=== PATIENT | female | born 1945 | race Caucasian/White ===

== ENCOUNTER → 2023-06-09 08:05 | Outpatient (REF) | payer OTHER, SELFPAY | LOC: DHCBS HW 08:05 | PROVIDERS: ATTENDING PHYSICIAN Internal Medicine Cardiovascular Disease; FAMILY PHYSICIAN Physician Assistant Medical | DX: I35.0 Nonrheumatic aortic (valve) stenosis (principal) | CPT/HCPCS: 93306 ==

== ENCOUNTER → 2023-06-27 09:34 | Outpatient (REF) | payer OTHER, SELFPAY | LOC: HWWDC 09:34 | PROVIDERS: ATTENDING PHYSICIAN Physician Assistant Medical | DX: Z12.31 Encounter for screening mammogram for malignant neoplasm of breast (principal) | CPT/HCPCS: 77063; 77067 ==

== ENCOUNTER → 2023-11-02 17:12 | Outpatient (REF) | payer OTHER, SELFPAY | LOC: RAD 17:12 | PROVIDERS: ATTENDING PHYSICIAN Orthopaedic Surgery; FAMILY PHYSICIAN Physician Assistant Medical | DX: M79.661 Pain in right lower leg (principal) | CPT/HCPCS: 93971 ==

== ENCOUNTER 2024-08-24 18:24 | Inpatient (IN) | payer OTHER, SELFPAY ==
[2024-08-24] VITALS (41 sets, daily range): BP systolic 102–183; BP diastolic 65–115; BMI 33.7
--- NOTE | 2024-08-24 16:52 | ED.CVA ---
History of Present Illness
General
Chief Complaint: CVA/TIA Symptoms
Source: patient and family
Time Seen by Provider: 08/24/24 16:41
Onset of Stroke Symptoms
Onset of symptoms known: Yes
Date of onset of symptoms: 08/24/24
Time of onset of symptoms: 15:00
History of Present Illness
History of Present Illness:
79-year-old female brought to the emergency room for evaluation of aphasia. Patient began having difficulty speaking while on the phone with a family member. They were having a long conversation and at about 3 PM the patient began having
difficulty speaking normally. She began communicating gibberish. Prior to that the patient had been complaining of a significant headache stating that she was having difficulty getting out of her chair because her head hurt so much. Due to
aphasia patient is unable to provide any other history. There are family members here with her who state the patient is cognitively 'sharp'.
Phy Exam
Physical Exam
Physical Exam:
General: Awake, Alert, Oriented X3. No acute distress.
Vitals: unremarkable
Head: Atraumatic
Eyes: Pupils equal, EOMI
Throat: Airway intact, no exudates
Neck: Trachea midline
Lungs: Clear and equal b/l
Heart: Regular rate, no murmurs
Abd: Soft, Nontender, No pulsatile mass
Neuro: Expressive aphasia, following commands well, sensation appears intact bilaterally, cranial nerves intact, muscle strength equal bilaterally, cerebellar exam normal
Skin: Warm, dry, no rash
Extremities: pulses equal b/l, no edema
Scores
NIH Stroke Score
Level of Consciousness: 0 - Alert
LOC Questions: 0-Answers both correctly
LOC Commands: 0-Performs both correctly
Best Horizontal Gaze: 0-Normal
Visual [place]: 0=Normal, no visual loss
Facial Palsy: 1=Minor paralysis
Motor - Right Arm: 0=No drift 10 seconds
Motor - Left Arm: 0=No drift 10 seconds
Motor - Right Le-No drift 5 seconds
Motor - Left Le-No drift 5 seconds
Limb Ataxia: 0-Absent
Sensation: 0-Normal
Best Language: 2-Severe aphasia
Dysarthria: 0-Normal
Extinction and Inattention: 0-No abnormality
NIH Total Score:: 3
Course
Orders/Labs/Results
Orders:
Orders
08/24/24 16:50
Electrocardiogram (*1) Stat
Reason for Study: Other
Other Reason for Exam: neuro symptoms
Cardiac Monitoring- Treatment ONCE
EKG- Treatment ONCE
08/24/24 16:51
CT BRAIN PERF STROKE ALERT Urgent
Comment:
Reason For Exam: aphasia
CT HEAD STROKE ALERT W/o Cont Urgent
Comment:
Reason For Exam: aphasia
CT HEAD/NECK ANG STROKE ALERT Urgent
Comment:
Reason For Exam: aphasia
08/24/24 17:07
Complete Blood Count/With Diff Urgent
Comprehensive Metabolic Panel Urgent
Glycohemoglobin (HgbA1c) Urgent
08/24/24 17:09
Tenecteplase [Tnkase] 22 mg Syringe [Syringe Non-Pump] 0 ml IV NOW
Provider explained risk/benefits to patient &/or caregiver?: Yes
Blood pressure: 136/75
08/24/24 17:42
Admit/Transfer Patient As Directed
Co-Sign Provider:
Level of Care: Inpatient admission
Assign to:: ICU
Physician / Group: Htay
Diagnosis: Acute CVA
Reason for Hospitalization: TNK
Expected length of stay greater than two midnights?: Yes
ELOS- Estimated Length of Stay in days: 3
I certify the patient meets the requirements for IP care: Yes
PRN Pain Medication Management As Directed
May give lesser potent ordered pain med per pt: Yes
preference::
Protocol:: Medication orders for pain may be administered in a
manner that supports deferring to patient preference
when the pt is:
- Requesting an ordered lesser potent pain medication.
Least to most potent pain medications are defined
as: acetaminophen < NSAID < tramadol < opioids
(morphine, oxycodone, hydromorphone).
- Requesting a lesser dose of the same medication IF
ORDERED.
- Requesting a less intrusive route of administration
if both routes are prescribed by the provider (PO <
IV).
08/24/24 17:44
Code Status As Directed
Resuscitation Status: Full Code
08/24/24 17:52
Swallow Screening CVA/TIA ONLY As Directed
Comment: NPO until swallow screening completed
If patient FAILS swallow screening:: NPO and Speech consult and aspiration precautions
If patient PASSES swallow screening, diet:: 1999 CHO Diabetic
08/24/24 17:53
Acetaminophen [Tylenol] 650 mg PO NOW STA
08/24/24 18:26
Acetaminophen [Tylenol] 650 mg PO Q4HPRN PRN
Dextrose 50%-Water [Dextrose 50% Syringe] 12.5 grams IV [id number] PRN
Ezetimibe [Zetia] 10 mg PO DAILY
Glucagon [GlucaGen] 1 mg IM PRN PRN
HydrALAZINE [Apresoline] 5 mg IV Q6HPRN PRN
08/24/24 18:26
Electrocardiogram (*1) Routine
Reason for Study: TIA/Stroke
Case Management Consult Once
Case Management Consult: Discharge Planning
DIETARY IP CONSULT Routine
Reason for Consult: stroke/TIA
Animal Attendant Consult Routine
Consulting Provider: Pita Estes
Was physician already notified: Yes
NEUROLOGY CONSULT Urgent
Consulting Provider: Tray Rangel
Was physician already notified: Yes
Portfolio Specialist Urgent
MR Brain Without Contrast Routine
Comment: complete 24 hrs post tenecteplase administration
Reason For Exam: possible stroke, status post tenecteplase
Recent pill cam endoscopy?: No
Activity As Directed
Activity Level: Bathroom Privileges
Out of Bed- Chair
With Assistance
Comment: x 24hr post tenecteplase admin (and no PT/OT). then OOB as tolerated
Bedside Glucose Monitoring As Directed
Frequency: AC&HS
Additional Instructions:: Change to q6h if pt on TPN, tube feeding or not eating
Head of Bed-Restrictions As Directed
Elevation Level: 30 degress
Frequency: At all times
Comment: head of bed up 30 degrees for 24 hours
Hemetest Stools As Directed
Comment: hemoccult all stools if patient received tenecteplase
NIH Stroke Scale As Directed
Directions: Other
Comment: NIH stroke Scale to be completed prior to thrombolytic administration, then every 1 hour for 2
hours, then every shift and with change in condition and/or mental status.
Neurological Checks As Directed
Frequency: Per unit guidelines
Additional Instructions:: after start of thrombolytic therapy:
q15min x 2 hrs, q30min x 6 hrs, q1h x 16 hrs, q4h x 24 hrs, then every shift and
with any changes.
Notify MD As Directed
Notify physician if: - Any deterioration, change in neurological status, development of severe headache,
nausea and vomiting, or with any signs of bleeding. (see guidelines for suspected
intracerebral hemorrhage).
- If intracranial hemorrhage is suspected or confirmed by imaging, anticipate need for
osmotic diuretic to maintain euvolemia.
Notify MD As Directed
Notify physician if: Glucose less than 70 or greater than 180.
Anticipate corrective insulin orders.
Notify MD As Directed
Notify physician if: SBP not at goal within 30 minutes of prn HYDRALAZINE administration.
notify provider to initiate continuous infusion of nicardipine or clevidipine.
Notify MD As Directed
Notify physician if: unable to obtain MRI of head within 22-32 hours of tenecteplase administration
- contact Neurology for order for CT of head without contrast
Patient Education As Directed
Type: Stroke education packet
Comment: provide to patient and family
Pneumatic Compression Sleeves As Directed
Type: Knee high
Precautions As Directed
Type of Precautions: Bleeding
Comment: post Bleeding Precaution sign at bedside (if patient received tenecteplase)
Thrombolytic Precautions As Directed
Thrombolytic Precautions:: [place] bleeding precautions. Minimize invasive procedures and venipunctures,
avoid IM injections and over-handling patient, and check all puncture sites for
bleeding. Assess the patient and notify provider for signs and symptoms of
internal or serious bleeding, such as changes in vital signs or evidence of blood
in the urine or stool.
Additional instructions: Hemocult all stools.
Apply direct pressure or pressure dressing to any compressible puncture sites.
No ABG sampling or Rodriguez insertion after Tenecteplase administration for 24 hours,
unless directed by the Neurologist/Attending.
Vital Signs As Directed
Frequency: q15m
Call for:: BP greater than 180/105 mmHg or less than 100/60 mmHg
Additional Instructions:: after start of thrombolytic therapy:
q15min x 2 hrs, q30min x 6 hrs, q1h x 16 hrs, q4h x 24 hrs, then every shift and
with any changes.
Physiatry Consult Routine
Consulting Provider: Yariel Rush
Was physician already notified: Yes
Reason for consult: stroke/TIA
Speech Therapy Eval & Treat Routine
DX Deep Vein Thrombosis Video Routine
08/24/24 20:00
Latanoprost [Xalatan Ophthalmic Solution] See Dose Instructions BOTH EYES QPM
08/25/24 00:00
Insulin Aspart Corrective Mod [Novolog Flexpen-Moderate Resistance] See Protocol SC Q6
08/25/24 06:00
Basic Metabolic Panel IN AM
Cardiovascular Evaluation IN AM
Complete Blood Count/No Diff IN AM
Magnesium IN AM
PTT IN AM
Prothrombin Time IN AM
Levothyroxine [Synthroid] 125 mcg PO DAILY@0600
08/25/24 08:00
Furosemide [Lasix] 20 mg PO DAILY
08/25/24 17:44
Ot Eval And Treat Routine
Pt Eval And Treat Routine
Activity Level: Out of Bed-Early Mobility
Abnormal Lab Results
08/24/24
17:07
WBC 11.3 H 10^3/uL
(4.8-10.8)
RBC 5.54 H 10^6/uL
(4.20-5.40)
MCH 26.9 L pg
(27.0-31.0)
MCHC 31.7 L g/dL
(33.0-37.0)
MPV 10.7 H fL
(7.4-10.4)
Abs Immat Gran (auto) 0.1 H 10^3/uL
(0-0.05)
Absolute Neuts (auto) 7.0 H 10^3/uL
(1.4-6.5)
Absolute Monos (auto) 0.9 H 10^3/uL
(0.1-0.6)
Chloride 108 H mmol/L
(98-107)
BUN 19 H mg/dl
(7-17)
Glucose 127 H mg/dl
(70-99)
08/24/24 17:07
08/24/24 17:07
Vital Signs
Initial and Last Documented VS:
Initial Vital Signs
Pulse Resp Pulse Ox
100 15 96
08/24/24 16:45 08/24/24 16:45 08/24/24 16:45
Last Documented Vital Signs
Temp Pulse Resp BP Pulse Ox
97.6 F 123 49 169/84 96
08/24/24 19:42 08/24/24 20:00 08/24/24 20:00 08/24/24 20:00 08/24/24 20:00
MDM/Problems Addressed
Differential Diagnosis Includes:
Ischemic CVA, hemorrhagic CVA, seizure
MDM/Problems Addressed:
I was called by nursing to evaluate the patient shortly after she was brought back into her room due to aphasia. Time of onset is approximately 3 PM. Med list is brought with the patient that does not contain any anticoagulants. dmitri Arzate
pharmacist checked the patient's primary care doctor records and found she is not taking any anticoagulants.
CT report by Dr. Childers is no acute findings on the head CT. Patient has significant aphasia. Perhaps a mild right facial droop. NIH score is a 2-3. Ended up itself this may be below the threshold for thrombolytics however aphasia is certainly a
severe life altering effect of ischemia and therefore I believe the benefit of thrombolytics outweighs the risk. Consent obtained from Pt's niece (and medical POA) Miladys. I did explain that there is approx 5% chance of intra-cranial bleeding but
I feel benefit outweighs the risk.
At the time the patient was being transferred up to the intensive care unit her speech was clear. Aphasia resolved. No headache.
Chronic conditions affecting care: HTN and CAD
*Radiology
Radiology exam reviewed: radiology read reviewed
*Pulse Oximetry
Patient hypoxic: no
*EKG
Interpreted by ED Provider?: Yes
Heart Rate: 100
Rate: normal
Rhythm: sinus
[place]: normal axis
Interval: normal interval
QRS Pattern: normal QRS
Ischemia: no ischemia
*Flexo Operator Interpretation
Rate: normal
Interpretation: normal
Rhythm: sinus
*Critical Care Note
Total Time (30-74mins, 75-104mins- exclusive of procedures): 45 min
comment:
Critical care statement: A total of 45 minutes of critical care time was provided for this patient. This includes management of unstable vital signs, evaluation of the patient at bedside, reviewing the patient's pertinent medical records, discussion
with consultants, review of old EKGs and review of pertinent medical records. This time with separate from time utilized to perform the aforementioned documented procedures
ED Attending Note
-
Portions of this chart may have been created with voice recognition software.� Occasional wrong word or��sound alike� substitutions may have occurred due to the inherent limitations of voice recognition software.
Discharge Plan
Departure
Patient Disposition: Admit
Date of Disposition: 08/24/24
Time of Disposition: 17:50
Admit to: ICU
Presentation/result/management discussed w/ accepting MD/DO: Hospitalist
Condition: Serious
Discharge Problem:
Acute CVA (cerebrovascular accident)
Interventions
Interventions:
*Risk Screen - Suicide Last Done: 08/24/24 17:03
*General Assessment Last Done: 08/24/24 17:03
*Neglect/Abuse Screening Last Done: 08/24/24 17:03
*ED- Fall Risk Assessment Last Done: 08/24/24 17:03
*ED COVID-19 Vaccine History Last Done: 08/24/24 17:03
ED- Pulmonary Assessment Last Done: 08/24/24 17:04
ED- Neurological Assessment Last Done: 08/24/24 17:38
ED- Cardiac Assessment Last Done: 08/24/24 17:04
ED Swallowing Screen Last Done: 08/24/24 18:01
[2024-08-24 17:16] LABS: % Eosinophils 5.9 % (0-6); % Immature Granulocytes 0.4 % (0-0.5); % Monocytes 7.5 % (1.7-9.3); % Neutrophils 62.2 % (42.2-75.2); Absolute Basophils 0.1 10^3/uL (0-0.2); Absolute Eosinophils 0.7 10^3/uL (0-0.7); Absolute Immature Granulocytes 0.1 10^3/uL (0-0.05); Absolute Lymphocytes 2.6 10^3/uL (1.2-3.4); Absolute Monocytes 0.9 10^3/uL (0.1-0.6); Hemoglobin 14.9 g/dL (12.0-16.0); Mean Corp Hgb Conc. 31.7 g/dL (33.0-37.0); Mean Corpuscular Hgb 26.9 pg (27.0-31.0); Mean Corpuscular Volume 84.8 fL (81.0-99.0); Mean Platelet Volume 10.7 fL (7.4-10.4); Nucleated Red Blood Cells % 0 %; Platelet Count 253 10^3/uL (130-400); Red Blood Cell Count 5.54 10^6/uL (4.20-5.40); Red Cell Dist. Width 13.7 % (11.5-14.5); White Blood Cell Count 11.3 10^3/uL (4.8-10.8)
[2024-08-24] MEDS: TNKASE 4.4 MG IV (17:18)
[2024-08-24 17:27] LABS: ALT (SGPT) 32 U/L (0-35); AST (SGOT) 27 U/L (14-36); Albumin 4.6 g/dl (3.5-5.0); Alkaline Phosphatase 66 U/L (38-126); Blood Urea Nitrogen 19 mg/dl (7-17); Calcium 9.8 mg/dl (8.4-10.2); Carbon Dioxide 25 mmol/L (22-30); Chloride 108 mmol/L (98-107); Estimated Creatinine Clearance 69 ml/min; Glucose 127 mg/dl (70-99); Potassium 4.1 mmol/L (3.5-5.1); Sodium 141 mmol/L (135-145); Total Bilirubin 0.6 mg/dl (0.2-1.3); Total Protein 7.7 g/dl (6.3-8.2); eGFR > 60.00
--- NOTE | 2024-08-24 17:47 | HPS.HSE ---
Family Physician
-
Family Physician: Yariel Stephens
Chief Complaint
-
abrupt onset of abnormal speech
History of Present Illness
I could not get any information from the patient due to initial dysphasia which is improved whem I examined her
Information gathered by chart review and speaking with the ER staff.
HPI
79F diabetic lives alone independently , [facility] for for evaluation of abnormal speech
- she began having difficulty speaking while on the phone with a family member.
- while they having a long conversation and at about 3 PM the patient began having difficulty speaking normally.
- began communicating gibberish.
- Prior to that the patient had been complaining of a significant headache stating
- she was having difficulty getting out of her chair because her head hurt so much.
- There are family members here with her who state the patient is cognitively 'sharp'.
Medical History
Past Medical History
Past Medical History: Reports HTN and IDDM
Past Surgical History: Reports Other
Social History
Tobacco: Non-smoker
Alcohol: None
Living: Alone
Family History
Family History: Not pertinent
Allergies / Home Medications
Allergies reflects when Allergies were last updated in [employer].
Home Medications with original date entered in [employer]
Allergy/Medication List:
Allergies
Allergy/AdvReac Type Severity Reaction Status Date / Time
adhesive tape [Adhesive Tape] Allergy skin very Verified 05/21/21 13:10
red and
sore
epinephrine [Epinephrine] Allergy fast heart Verified 05/21/21 13:10
rate
during
dental
procedure
BOBBY Inhibitors AdvReac COUGH Verified 05/21/21 13:10
acetaminophen [From Percocet] AdvReac HYPERACTIVE Verified 05/21/21 13:10
metformin AdvReac DIARRHEA Verified 05/21/21 13:10
oxycodone [From Percocet] AdvReac HYPERACTIVE Verified 05/21/21 13:10
Oraamjv-SGS-SgQ Reductase AdvReac MUSCLE Verified 05/21/21 13:10
Inhibitor CRAMPS
Home Medications
amlodipine 10 mg tablet 10 mg PO DAILY 05/21/21
furosemide 20 mg tablet 20 mg PO DAILY 05/21/21
insulin degludec 100 unit/mL subcutaneous solution (Tresiba U-100 Insulin) 25 unit SC DAILY 05/21/21
levothyroxine 125 mcg tablet 125 mcg PO DAILY 05/21/21
multivitamin 1 ea PO DAILY 05/21/21
omega 5-qxf-lzy-fish oil 60 mg-90 mg-500 mg capsule 1 ea PO DAILY 05/21/21
aspirin 81 mg tablet,delayed release 81 mg PO DAILY 08/24/24
bimatoprost 0.01 % eye drops (Lumigan) 1 drp BOTH EYES QPM 08/24/24
docusate sodium 100 mg capsule 100 mg PO HS 08/24/24
dorzolamide 22.3 mg-timolol 6.8 mg/mL eye drops 1 drp BOTH EYES BID 08/24/24
ezetimibe 10 mg tablet 10 mg PO DAILY 08/24/24
magnesium 250 mg tablet 250 mg PO DAILYPRN PRN as directed 08/24/24
nateglinide 60 mg tablet 60 mg PO AC 08/24/24
psyllium novp-aaub-eakv gum-pectin 620 mg capsule (Fiber Fusion Daily) 620 cap PO DAILYPRN PRN constipation 08/24/24
Review of Systems
-
Constitutional: Reports No Symptoms
EENT: Reports No Symptoms
Respiratory: Reports No Symptoms
Cardiac: Reports No Symptoms
Abdomen/GI: Reports No Symptoms
: Reports No Symptoms
Musculoskeletal: Reports No Symptoms
Skin: Reports No Symptoms
Neurological: Reports See HPI and Headache
Endocrine: Reports No Symptoms
Hematologic/Lymphatic: Reports No Symptoms
Psych: Reports No Symptoms
Physical Exam
Vital Signs
Vital Signs
Temp Pulse Resp BP Pulse Ox
98.1 F 104 18 146/71 95
08/24/24 17:01 08/24/24 17:36 08/24/24 17:36 08/24/24 17:36 08/24/24 17:28
Physical Exam
General: Well Developed, Well Nourished and No Apparent Distress
HEENT: NormoCephalic, Moist mucous membranes and Atraumatic
Respiratory: Clear
Cardiac: S1/S2 and Regular Rhythm; No Murmur or Rub
GI: Soft, Non Tender, Non Distended and Normal Bowel Sounds; No Organomegaly
Rectal: Deferred by Provider
Musculoskeletal: No Clubbing, No Cyanosis and No Edema
Skin: No Rash
Neuro: Awake, Alert, AO x 3, No Motor Deficits, Nonfocal/grossly intact, No Sensory Deficits and Facial Droop (subtle Lt facial droop ); No Slurred Speech (resolved upon my exam )
Psych: Calm and Intact Judgment/Insight; No Confused
Laboratory Results
-
08/24/24 17:07
08/24/24 17:07
Laboratory Results
Total Bilirubin 0.6 mg/dl (0.2-1.3) 08/24/24 17:07
AST 27 U/L (14-36) 08/24/24 17:07
ALT 32 U/L (0-35) 08/24/24 17:07
Alkaline Phosphatase 66 U/L (38-126) 08/24/24 17:07
Data Reviewed
-
CT Scan: Report Reviewed by me
Lab Data: Labs Reviewed by me
Impression/Plan
-
Vital Signs
Temp Pulse Resp BP Pulse Ox
98.1 F 92 16 144/76 95
08/24/24 17:01 08/24/24 17:51 08/24/24 17:51 08/24/24 17:51 08/24/24 17:28
NIH Stroke Score upon arrival by ER
Level of Consciousness: 0 - Alert
LOC Questions: 0-Answers both correctly
LOC Commands: 0-Performs both correctly
Best Horizontal Gaze: 0-Normal
Visual [place]: 0=Normal, no visual loss
Facial Palsy: 1=Minor paralysis
Motor - Right Arm: 0=No drift 10 seconds
Motor - Left Arm: 0=No drift 10 seconds
Motor - Right Le-No drift 5 seconds
Motor - Left Le-No drift 5 seconds
Limb Ataxia: 0-Absent
Sensation: 0-Normal
Best Language: 2-Severe aphasia
Dysarthria: 0-Normal
Extinction and Inattention: 0-No abnormality
NIH Total Score:: 3
Abnormal Lab Results
08/24/24
17:07
WBC 11.3 H
RBC 5.54 H
MCH 26.9 L
MCHC 31.7 L
MPV 10.7 H
Abs Immat Gran (auto) 0.1 H
Absolute Neuts (auto) 7.0 H
Absolute Monos (auto) 0.9 H
Chloride 108 H
BUN 19 H
Glucose [address] HEAD STROKE ALERT W/o Con
No evidence of acute intracranial abnormality
CT HEAD/NECK ANG STROKE ALERT
- No evidence for intracranial large vessel occlusion.
- Aberrant medial course of the common carotid arteries, carotid bulbs, and proximal internal carotid arteries bilaterally.
- Less than 25% diameter reduction of the right carotid bulb and proximal right ICA.
- Moderate atherosclerotic disease involving the proximal left ICA with measured diameter reduction of 55%.
This could represent a hemodynamically significant stenosis. Further evaluation with cerebrovascular ultrasound could be attempted, but may be technically difficult because of the apparent medial course of the common carotid and proximal
internal carotid arteries.
- No significant narrowing of the vertebral or basilar arteries, with no evidence to suggest dissection.
Percent stenosis is calculated using NASCET criteria.
EKG
NORMAL SINUS RHYTHM
LOW VOLTAGE QRS
CANNOT RULE OUT ANTERIOR INFARCT , AGE UNDETERMINED
ABNORMAL ECG
WHEN COMPARED WITH ECG OF 22-MAY-2021 03:51,
NO SIGNIFICANT CHANGE WAS FOUND
ASSESSMENT & PLAN
Abrupt onset of dysphasic abn language with mild Rt facial droop
- NIH score 3 on arrival to ER - rapidly improved post TNK
- onset and arrival to ER is within TN window per ER attd
- HCT by Dr. Childers is no acute findings on the head CT.
- per ER attd : aphasia is certainly a severe life altering effect of ischemia and therefore I believe the benefit of thrombolytics outweighs the risk.
- Consent obtained from Pt's niece (and medical POA) Miladys acknowledged approx 5% chance of intra-cranial bleeding
- admit to ICU s/p TNK
- BP control: IV Hydralazine PRN if SBP > 180, DBP > 105 pr TNK protocol
- Hold EMERGENCY DISPATCHER Anti HTN Meds
- Brain MRI in AM
- check A1c, Lipids study
- ICU admission and follow post TNK protocol
- Neurologist and ICU consulted
Proximal left ICA with measured diameter reduction of 55%.
- hemodynamically significant stenosis ?
- await Neurologist evaluation
DVT Px: SCD
Full code
ICU
Total Critical Care Time__45___ minutes. I was immediately available to the patient and staff. I personally examined, reviewed labs, diagnostic images/reports, interpretations, treatment plans, discussed patient care with other providers and
family or caregivers (if patient is unable to make decisions), entered orders as appropriate and documented the medical record.
[2024-08-24] MEDS: TYLENOL 650 MG PO (18:02)
--- NOTE | 2024-08-24 19:25 | PTCARENOTE ---
Pt arrived to ICU rm#[id number] via stretcher from ED at 1815 w/ AGENT CONTRACT CLERK in attendance. Pt awake and responding appropriately to questions. Ox3. Pt c/o of urgent need to urinate. Placed on bedpan to void while still on ER stretcher- unsuccessful. Pt
transferred into ICU bed when she began to c/o 'numbness' and 'tingling' in Lt hand/fingers. Pt reports 'I have a trigger finger' and 'this sometimes happens'. Pt placed on ICU lunchroom monitor and NIHSS assessment completed at bedside with AGENT CONTRACT CLERK.
With assessment this RN found that pt had very slight Lt facial droop, Lt assistant floor covering printer <Rt assistant floor covering printer. When testing sensation to LEs, pt seemed to be unaware of touch sensation to Lt LE.- when touching both LEs pt would only identify Rt. When used pencil to touch
pts LE and asked if it felt the same to both LEs, pt stated 'Rt side is more'. Pt unable to read full sentences on NIHSS paperwork- neglects Lt sided most words. Kareem SCHUMACHER on unit and notified immediately of findings and made aware that per
AGENT CONTRACT CLERK these are significantly different findings from pts previous assessment in ER. Order for STAT CT Head ordered and pt immediately transferred w/ this RN for CT Scan. During transport, pt conversational and told this RN about her time in [place]
helping her sister care for her young children. During CT Scan- pt noted to be increasingly restless 'I have to pee so bad it hurts'. Upon return to ICU room, pt again assisted onto bedpan but unable to void. Rodriguez catheter placed by Juliano Rahman RN
and assisted by RN. Immediate return of >400ml pale yellow urine noted and continuing to drain. Despite Rodriguez placement, pt increasingly restless and noted to be more confused and inappropriate with conversation. Obvious signs of Lt sided neglect
noted as pt does not turn her head or acknowledge staff on Lt side of bed. Kareem SCHUMACHER notified of continued deterioration. Pt's nieces to bedside- updated on pt's present condition/plan of care. NIHSS completed w/ incoming shift RN.
--- NOTE | 2024-08-24 19:51 | PTCARENOTE ---
pt with worsening neuro symptoms, facial droop more prominent at rest, very restless attempting to sit up and get OOB, confused/mild slur. BDoughertyNP aware, in contact w Neuro, awaiting plan.
[2024-08-24] MEDS: ATIVAN 2 MG IV (20:45)
--- NOTE | 2024-08-24 20:45 | PTCARENOTE ---
CTA done, pt required 2mg IV ativan x 1 due to restlessness/constant movement on CT table. assessment unchanged.
[2024-08-24] MEDS: ZETIA PO (21:27)
[2024-08-24] MEDS: XALATAN OPHTHALMIC SOLUTION 1 DROP BOTH EYES (21:28)
[2024-08-24] MEDS: NSS (PRESERVATIVE FREE) 1 ML IV (21:29)
[2024-08-24] MEDS: NOVOLOG FLEXPEN-MODERATE RESISTANCE 1 UNITS SC (23:27)
[2024-08-24 23:37] LABS: Glucose - Point of Care 159 mg/dl (70-99)
[2024-08-25] VITALS (52 sets, daily range): BP systolic 106–182; BP diastolic 33–106; BMI 33.4
--- NOTE | 2024-08-25 | PTCARENOTE ---
neuro checks ongoing- see work list. pt sometimes able to say a few clear words and follow simple commands, slightly restless. no further changes.
--- NOTE | 2024-08-25 01:14 | W.PN.UPDATE ---
Update Note
Progress Note Update
Acute neuro status changes at 18:30. Stat Head CT ordered. (No significant findings). Neuro updated. �Neuro exam continues to decline. �Neuro recommended a repeat CTA of head to look for clot because of embolic etiology. �If clot found, patient
would be consider for possible thrombectomy candidate. However, no clot found and no other options for interventions.
[2024-08-25] MEDS: OFIRMEV 100 IV (01:47)
[2024-08-25 03:42] LABS: Hematocrit 44.3 % (37.0-47.0); Hemoglobin 14.4 g/dL (12.0-16.0); Mean Corp Hgb Conc. 32.5 g/dL (33.0-37.0); Mean Corpuscular Hgb 27.3 pg (27.0-31.0); Mean Corpuscular Volume 84.1 fL (81.0-99.0); Mean Platelet Volume 10.3 fL (7.4-10.4); Platelet Count 231 10^3/uL (130-400); Red Blood Cell Count 5.27 10^6/uL (4.20-5.40); Red Cell Dist. Width 13.3 % (11.5-14.5); White Blood Cell Count 14.3 10^3/uL (4.8-10.8)
[2024-08-25 03:57] LABS: INR 0.98; PT 13.3 Sec (11.4-14.6)
[2024-08-25 03:58] LABS: APTT 33.8 Sec (23.4-35.0)
[2024-08-25 04:07] LABS: Blood Urea Nitrogen 17 mg/dl (7-17); Calcium 9.6 mg/dl (8.4-10.2); Carbon Dioxide 24 mmol/L (22-30); Chloride 108 mmol/L (98-107); Estimated Creatinine Clearance 81 ml/min; Glucose 179 mg/dl (70-99); HDL Cholesterol 43 mg/dl; LDL Cholesterol, Calculated 144 mg/dl; Magnesium 1.8 mg/dl (1.6-2.3); Potassium 4.1 mmol/L (3.5-5.1); Sodium 141 mmol/L (135-145); Total Cholesterol 211 mg/dl (50-199); Triglyceride 123 mg/dl (10-149); Very Low Density Lipoprotein 24 mg/dl (0-30); eGFR > 60.00
[2024-08-25 06:37] LABS: Glucose - Point of Care 192 mg/dl (70-99)
[2024-08-25] MEDS: NOVOLOG FLEXPEN-MODERATE RESISTANCE 1 UNITS SC ×2 (06:37→12:34)
[2024-08-25] MEDS: SYNTHROID PO (06:37)
--- NOTE | 2024-08-25 07:22 | CON.INTV ---
Consultation
Consultation Request
Date/Time Consultation Requested: 08/24/2024
Date/Time Consultation Performed: 08/25/2024
Requesting Provider: Daryl Jefferson
Performing Provider: Pita Estes
Reason for Consultation: Stroke concern
Medical History
-
Chief Complaint: Dysphasia
History of Present Illness:
Patient is a 79-year-old female with known history of coronary artery disease and diabetes who was brought to the emergency room for abnormal speech. Apparently change in speech started while she was talking on the phone with the family member. In
the emergency room stroke alert was called and patient subsequently had a CT and CTA performed which was negative for any acute intracranial hemorrhage or large vessel occlusion. TNK was given for suspected underlying acute CVA. Patient was
subsequently admitted to the ICU and impregnator electrolytic capacitors consult was requested for further input.
Past Medical History
Past Medical History: Reports HTN and IDDM
Past Surgical History: Reports Other
Social History
Tobacco: Non-smoker
Alcohol: None
Living: Alone
Family History
Family History: Not pertinent
Allergies / Home Medications
Allergies / Home Medications
Allergies
Allergy/AdvReac Type Severity Reaction Status Date / Time
BOBBY Inhibitors Allergy COUGH Verified 08/24/24 17:57
adhesive tape [Adhesive Tape] Allergy skin very Verified 05/21/21 13:10
red and
sore
epinephrine [Epinephrine] AdvReac fast heart Verified 08/24/24 18:29
rate
during
dental
procedure
metformin AdvReac DIARRHEA Verified 08/24/24 18:29
oxycodone [From Percocet] AdvReac HYPERACTIVE Verified 08/24/24 18:29
Ffnfivx-CZR-QzN Reductase AdvReac MUSCLE Verified 08/24/24 18:29
Inhibitor CRAMPS
Home Medications
�Medication �Instructions �Recorded �Confirmed �Last Taken �Type
amlodipine 10 mg tablet 10 mg PO DAILY 05/21/21 08/24/24 05/20/21 09:00 History
furosemide 20 mg tablet 20 mg PO DAILY 05/21/21 08/24/24 05/20/21 09:00 History
insulin degludec 100 unit/mL 25 unit SC DAILY 05/21/21 08/24/24 05/20/21 07:00 History
subcutaneous solution (Tresiba
U-100 Insulin)
levothyroxine 125 mcg tablet 125 mcg PO DAILY 05/21/21 08/24/24 05/20/21 09:00 History
multivitamin 1 ea PO DAILY 05/21/21 08/24/24 05/20/21 09:00 History
omega 7-rcf-wtp-fish oil 60 mg-90 1 ea PO DAILY 05/21/21 08/24/24 Unknown History
mg-500 mg capsule
aspirin 81 mg tablet,delayed 81 mg PO DAILY 08/24/24 08/24/24 Unknown History
release
bimatoprost 0.01 % eye drops 1 drp BOTH EYES QPM 08/24/24 08/24/24 Unknown History
(Lumigan)
docusate sodium 100 mg capsule 100 mg PO HS 08/24/24 08/24/24 Unknown History
dorzolamide 22.3 mg-timolol 6.8 1 drp BOTH EYES BID 08/24/24 08/24/24 Unknown History
mg/mL eye drops
ezetimibe 10 mg tablet 10 mg PO DAILY 08/24/24 08/24/24 Unknown History
magnesium 250 mg tablet 250 mg PO DAILYPRN PRN as directed 08/24/24 08/24/24 Unknown History
nateglinide 60 mg tablet 60 mg PO AC 08/24/24 08/24/24 Unknown History
psyllium klfj-dnit-utca gum-pectin 620 cap PO DAILYPRN PRN 08/24/24 08/24/24 Unknown History
620 mg capsule (Fiber Fusion Daily) constipation
Review of Systems
-
Hematologic/Lymphatic: Other (All 14 systems reviewed and negative except as stated above in the history of present illness.)
Vitals / Labs / Diagnostic Testing
Vital Signs
Temp Pulse Resp BP Pulse Ox
98.4 F 98 20 150/79 94
08/25/24 03:30 08/25/24 06:30 08/25/24 06:30 08/25/24 06:21 08/25/24 06:30
Lab Data
08/25/24 03:21
08/25/24 03:21
Laboratory Results
08/25/24
03:21
PT 13.3
INR 0.98
APTT 33.8
Diagnostic Testing:
Physical Exam
-
HEENT: Normocephalic
Cardiovascular: S1/S2
Respiratory: Clear
GI: Soft and Non Distended
Neurology: Awake, Alert, Oriented and Other (Per patient, speech is back to baseline.)
Skin: Warm
General: Comfortable
Assessment
-
#1. Dysphagia with concern for acute stroke
- S/p TNK. Speech improved, appears to be at baseline
- Monitor closely in ICU
- Repeat CTA overnight without any acute abnormality
- Neurology service on case
- Permissive hypertension. Hold antiplatelets anticoagulant for first 24 hours and follow on further recommendations from neurology service
- Mild to moderate carotid artery stenosis noted on imaging
- Continue telemetry to monitor for any arrhythmia
#2. History of coronary artery disease, s/p PCI in 2021
- EKG unremarkable, no chest pain reported
- Hold antiplatelets for now considering TNK overnight
Other medical diagnoses:
-DM. SSI
-Hypothyroidism. On replacement
SCDs for DVT prophylaxis for now
Critical Care time 61 mins -- The patient is admitted for acute critical illness for the treatment of vital organ failure and/or prevention of further life-threatening conditions. Total care includes time spent in review of history, physical exam,
medications, hemodynamic/ventilator parameters, laboratory data, imaging and discussion with house staff, pharmacy, respiratory therapy, pensionholder information clerk, and nursing.
Data:
CXR 08/2024: Lungs are hypoinflated with resultant crowding of bronchovascular markings.
Mild elevation of the left hemidiaphragm.
CT/CTA Head 08/2024:
- Negative for acute abnormality
- No evidence for intracranial large vessel occlusion.
- Aberrant medial course of the common carotid arteries, carotid bulbs, and proximal internal carotid arteries bilaterally. Less than 25% diameter reduction of the right carotid bulb and proximal right ICA.
- Moderate atherosclerotic disease involving the proximal left ICA with measured diameter reduction of 55%. This could represent a hemodynamically significant stenosis. Further evaluation with cerebrovascular ultrasound could be attempted, but may
be technically difficult because of the apparent medial course of the common carotid and proximal internal carotid arteries.
- No significant narrowing of the vertebral or basilar arteries, with no evidence to suggest dissection
ECHO 06/2023: Normal left ventricular size, wall thickness and systolic function. No gross
regional wall motion abnormalities are seen. Estimated ejection fraction is
59%. Normal diastolic function.
Normal right ventricular size and function.
Mild mitral regurgitation.
Thickened trileaflet aortic valve with reduced leaflet excursion. Mild aortic
stenosis. Peak/mean gradients across the aortic valve are 18/9 mmHg. Aortic
valve area is 1.9 cm2. Trace aortic regurgitation.
Estimated pulmonary artery pressure of 30-35 mmHg. Assuming a right atrial
pressure of 3 mmHg.
Trivial pericardial effusion.
Cardiac Cath 05/2021: 1. Complex but successful stenting of the proximal to mid LAD with overlapping 3.0 x 28 mm and 3.0 x 18 mm Xience stents. The stented segment was postdilated with a 3.25 mm noncompliant balloon between 16 and 18 angus from the
proximal to midportion of the stent and at nominal pressures on the distal stent edge.
2. Preserved left ventricular function
[2024-08-25] MEDS: LASIX 20 MG PO (08:27)
[2024-08-25] MEDS: ZETIA 10 MG PO (08:27)
--- NOTE | 2024-08-25 09:31 | W.PN.HOSP.TC ---
Today's Communication/Plan
-
Assessment / Plan
Assessment / Plan
NAD
Scleral Anicteric
MMM
No JVD
CTABL
RRR, S1/S2
Soft, NT, ND, BS+
Warm, Dry
AAOx3, 5/5 motor strength in bilateral lower and upper extremities, good loltmw-bk-rqvg, jzgi-ak-jkap with good coordination
Slight facial droop worse on the left side than the right
Calm
Acute CVA, NIH improving, s/p TNK at around 3 PM in the ER
Neurology following
CT brain without evidence of acute intracranial abnormality, CTA head and neck no evidence of intracranial large vessel occlusion with noted mild ICA disease bilaterally worse in the left than the right need continued outpatient follow-up for this
MRI brain ordered
Can start aspirin once complete 24 hours post TNK
Continue Zetia, has known history of statin induced myalgias
PT OT
Per nursing bedside dysphagia screen completed past
Has Rodriguez catheter that can likely be removed after 24 hours of TNK
Hypothyroidism
Continue levothyroxine
Hypertension
Start antihypertensives as able to
Anticipated Discharge: 24 - 48 hours
Subjective/Interval History
-
Date of Service: August 25, 2024
Seen and examined. No new complaints. No acute overnight events.
Has not noted bleeding
States symptomatology is improving
Provide side nurse NIH 1 for slight facial droop
Objective Data
-
Labs:
Laboratory Results
08/25/24
03:21
WBC 14.3 H
Hgb 14.4
Hct 44.3
Plt Count 231
PT 13.3
INR 0.98
APTT 33.8
Sodium 141
Potassium 4.1
Chloride 108 H
Carbon Dioxide 24
BUN 17
Creatinine 0.6
Glucose 179 H
Calcium 9.6
Vital Signs:
Vital Signs
Temp Pulse Resp BP Pulse Ox
99.3 F 98 22 180/62 94
08/25/24 07:38 08/25/24 08:33 08/25/24 08:33 08/25/24 08:21 08/25/24 08:33
I&O
08/24/24 08/25/24 08/26/24
06:59 06:59 06:59
Output Total 1690 / 1690
Balance -1690 / -1690
--- NOTE | 2024-08-25 09:51 | CM ---
Patient seen at bedside with fay present in ICU. Patient stated that she lives alone in a 2 story home. Patient stated that she has no DME at home that she uses. Patient PCP is [facility] practice a [employer] but patient unable to state
name. Patient also uses the [facility] in [place] not the [facility]. Patient family indicated that they would review options for SNF placement if therapy/physicians recommended. PAC data provided to patient and family. Patient plan is to return home
and expressed resistance to placement. Family very supportive and will work with patient pending medical treatment plan/recommendations. CM will continue to follow for discharge planning needs.
Plan; home with VN vs SNF pending physician recommendations/therapy
--- NOTE | 2024-08-25 10:00 | PTCARENOTE ---
Rec'd pt at 0700. Bedside handoff completed with nightshift RN, NIHSS-1 for slight facial droop. JANE with no drift noted. Left hand grasp slightly weaker then right. Pt denies any numbness or tingling. Speech clear. Monitor SR. Lungs CTA. +BS, abd
soft/nt. Bedside swallow eval completed, pt passed and diet ordered. Rodriguez draining yellow urine. Family at bedside.
--- NOTE | 2024-08-25 11:02 | CON.NEURO ---
Addendum entered and electronically signed by Tray Rangel MD 08/25/24 17:27:
spoke to niece/alex Gimenez over the phone, MRI no stroke, the TNK worked,
suspecting embolic etiology, BALDO and additional afib screening recommended but optional
Original Note:
Neuro Assessment/Plan
Assessment
Head CT imgs and rept rev'd, mild diffuse atrophy and microvascular changes
CTA head/neck imgs and rept rev'd, agree no LVO, mild carotid plaque bilat without hemodynamically significant stenosis
repeat head CT yesterday evening no bleed
repeat CTA head no LVO
Acute stroke, responded well to TNK
MRI ~24 hrs after TNK
As she initially presented with left hemispheric cortical sign (aphasia) and now with a right hemispheric cortical sign (left sided neglect) suspect etiology embolic stroke of unknown source (ESUS) management would be to start ASA 81 ~24 hrs post
TNK after MRI, unless a source were found
spoke with patient re: BALDO, additional outpatient afib monitoring which she will think about
Consultation
Order
Date of Consultation: 08/25/24
Requesting Provider: Hortencia Beal PA-C
Reason for Consult: stroke
Subjective/Objective
Subjective Data
Date of Service: August 25, 2024
from h&p
79F diabetic lives alone independently , [facility] for for evaluation of abnormal speech
- she began having difficulty speaking while on the phone with a family member.
- while they having a long conversation and at about 3 PM the patient began having difficulty speaking normally.
- began communicating gibberish.
- Prior to that the patient had been complaining of a significant headache stating
- she was having difficulty getting out of her chair because her head hurt so much.
- There are family members here with her who state the patient is cognitively 'sharp'.
she was evaluated by telestroke and treated with TNK. the aphasia resolved. ~6:30 pm upon arrival to ICU, patient developed left sided neglect, sensory and visual. As she initially presented with left hemispheric cortical sign (aphasia) and now with
a right hemispheric cortical sign (left sided neglect) over the phone I advised repeat head CT and CTA head which again showed no LVO.
Objective Data
Vital Signs
Temp Pulse Resp BP Pulse Ox
37.4 C 89 14 128/61 98
08/25/24 07:38 08/25/24 10:21 08/25/24 10:21 08/25/24 10:21 08/25/24 10:21
Lab Results
08/25/24 03:21
08/25/24 03:21
PT 13.3 Sec (11.4-14.6) 08/25/24 03:21
INR 0.98 08/25/24 03:21
APTT 33.8 Sec (23.4-35.0) 08/25/24 03:21
Sodium 141 mmol/L (135-145) 08/25/24 03:21
Potassium 4.1 mmol/L (3.5-5.1) 08/25/24 03:21
BUN 17 mg/dl (7-17) 08/25/24 03:21
Glucose 179 mg/dl (70-99) H 08/25/24 03:21
Calcium 9.6 mg/dl (8.4-10.2) 08/25/24 03:21
LDL Cholesterol, Calc 144 mg/dl 08/25/24 03:21
Patient Allergies
BOBBY Inhibitors Allergy (Verified 08/24/24 17:57)
COUGH
adhesive tape [Adhesive Tape] Allergy (Verified 05/21/21 13:10)
skin very red and sore
epinephrine [Epinephrine] Adverse Reaction (Verified 08/24/24 18:29)
fast heart rate during dental procedure
metformin Adverse Reaction (Verified 08/24/24 18:29)
DIARRHEA
oxycodone [From Percocet] Adverse Reaction (Verified 08/24/24 18:29)
HYPERACTIVE
Giksnod-KLZ-QkY Reductase Inhibitor Adverse Reaction (Verified 08/24/24 18:29)
MUSCLE CRAMPS
Physical Exam
-
AAOx3, speech clear, language intact
VFF, EOMI, L NL flattening
full strength b/l UE/LE,
sensation intact to touch/pin
Medications
-
Active Medications
Generic Name Dose Route Start Last Admin
Trade Name Freq PRN Reason Stop Dose Admin
Acetaminophen 650 mg 08/24/24 18:26
Acetaminophen 325 Mg Tablet PO 09/21/24 18:25
Q4HPRN PRN
CRABTREE, mild pain, or temp >100.4F
Dextrose 12.5 grams 08/24/24 18:26
Dextrose 50% (0.5 Grams/Ml) 50 Ml Syringe IV 09/21/24 18:25
[id number] PRN
hypoglycemia
Protocol
Ezetimibe 10 mg 08/24/24 18:26 08/25/24 08:27
Ezetimibe (Zetia) 10 Mg Tablet PO 09/21/24 18:25 10 mg
DAILY MOJGAN Administration
Furosemide 20 mg 08/25/24 08:00 08/25/24 08:27
Furosemide 20 Mg Tablet PO 09/22/24 07:59 20 mg
DAILY OMJGAN Administration
Glucagon 1 mg 08/24/24 18:26
Glucagon 1 Mg Vial IM 09/21/24 18:25
PRN PRN
hypoglycemia
Protocol
Hydralazine HCl 5 mg 08/24/24 18:26
Hydralazine 20 Mg/Ml Vial IV 09/21/24 18:25
Q6HPRN PRN
BP > 180/105 mmHg
Insulin Aspart 0 units 08/25/24 00:00 08/25/24 06:37
Insulin Aspart Moderate Resistance 300 Units/3 Ml Pen.Injctr SC 09/22/24 00:00 1 units
Q6 MOJGAN Administration
Protocol
Latanoprost 0 drop 08/24/24 20:00 08/24/24 21:28
Latanoprost 0.005% (Ophthalmic Solution) 2.5 Ml Bottle BOTH EYES 09/21/24 19:59 1 drop
QPM MOJGAN Administration
Levothyroxine Sodium 125 mcg 08/25/24 06:00 08/25/24 06:37
Levothyroxine 125 Mcg Tablet PO 09/22/24 05:59 Not Given
DAILY@0600 MOJGAN
Sodium Chloride 0 flush 08/24/24 19:00
Sodium Chloride 0.9% (Flush) Syringe IV 09/21/24 18:59
PER PROTOCOL MOJGAN
Home Medications
�Medication �Instructions �Recorded
amlodipine 10 mg tablet 10 mg PO DAILY 05/21/21
furosemide 20 mg tablet 20 mg PO DAILY 05/21/21
insulin degludec 100 unit/mL 25 unit SC DAILY 05/21/21
subcutaneous solution (Tresiba
U-100 Insulin)
levothyroxine 125 mcg tablet 125 mcg PO DAILY 05/21/21
multivitamin 1 ea PO DAILY 05/21/21
omega 3-kba-iqo-fish oil 60 mg-90 1 ea PO DAILY 05/21/21
mg-500 mg capsule
aspirin 81 mg tablet,delayed 81 mg PO DAILY 08/24/24
release
bimatoprost 0.01 % eye drops 1 drp BOTH EYES QPM 08/24/24
(Lumigan)
docusate sodium 100 mg capsule 100 mg PO HS 08/24/24
dorzolamide 22.3 mg-timolol 6.8 1 drp BOTH EYES BID 08/24/24
mg/mL eye drops
ezetimibe 10 mg tablet 10 mg PO DAILY 08/24/24
magnesium 250 mg tablet 250 mg PO DAILYPRN PRN as directed 08/24/24
nateglinide 60 mg tablet 60 mg PO AC 08/24/24
psyllium qtin-etdu-bfmg gum-pectin 620 cap PO DAILYPRN PRN 08/24/24
620 mg capsule (Fiber Fusion Daily) constipation
--- NOTE | 2024-08-25 11:44 | PTOTSP ---
Speech Pathology
Clinical Swallow Evaluation
79F with admission for acute CVA s/p TNK presents with a functional oropharyngeal swallow. No overt s/s of aspiration observed. Cannot r/o silent aspiration at bedside. Rt sided facial droop and speech difficulties have resolved. Speech will
continue to follow, likely briefly, to r/o silent aspiration. Aspiration risk is increased 2/2 new CVA dx.
Recommend:
1. Regular textures (IDDSI 7), thin liquids
2. Meds as best tolerated
3. Aspiration Precautions
4. Speech will continue to follow, likely briefly re: ensure tolerance of current diet given new CVA; if difficulties arise, pt would likely benefit from VSE to r/o silent aspiration
[2024-08-25 12:35] LABS: Glucose - Point of Care 152 mg/dl (70-99)
[2024-08-25 15:00] LABS: Glycohemoglobin (HgbA1c) 6.9 % (4.0-5.6)
[2024-08-25 15:26] LABS: Glucose - Point of Care 99 mg/dl (70-99)
[2024-08-25] MEDS: NOVOLOG FLEXPEN-MODERATE RESISTANCE SC (15:40)
--- NOTE | 2024-08-25 16:07 | PTCARENOTE ---
MRI completed. Pt resting comfortably in bed with family at bedside. No changes in assessment.
[2024-08-25] MEDS: XALATAN OPHTHALMIC SOLUTION 1 DROP BOTH EYES (17:12)
[2024-08-25] MEDS: ASPIR LOW (ENTERIC COATED) 81 MG PO (17:26)
--- NOTE | 2024-08-25 20:00 | PTCARENOTE ---
patient assistant, pt aaox3, NIHSS 0. only deficit noted at this time is slightly weaker hand grasp on L side. denies pain. LA IV x 2 WNL. CHG bath, Rodriguez care done. POC discussed, call ronit simon pt.
[2024-08-25 21:29] LABS: Glucose - Point of Care 163 mg/dl (70-99)
[2024-08-26] VITALS (17 sets, daily range): BP systolic 105–142; BP diastolic 44–91; PULSE 76; O2SAT 95; BMI 33.0
--- NOTE | 2024-08-26 | PTCARENOTE ---
no changes in pt assessment.
--- NOTE | 2024-08-26 01:25 | PTCARENOTE ---
pt SBP low 100s while asleep, BDoughertyNP aware. will monitor.
--- NOTE | 2024-08-26 04:00 | PTCARENOTE ---
no changes in pt assessment.
[2024-08-26 04:11] LABS: Hematocrit 41.9 % (37.0-47.0); Hemoglobin 13.4 g/dL (12.0-16.0); Mean Corpuscular Hgb 27.2 pg (27.0-31.0); Mean Platelet Volume 10.6 fL (7.4-10.4); Platelet Count 231 10^3/uL (130-400); Red Blood Cell Count 4.93 10^6/uL (4.20-5.40); Red Cell Dist. Width 13.4 % (11.5-14.5)
[2024-08-26 04:34] LABS: Blood Urea Nitrogen 25 mg/dl (7-17); Calcium 9.5 mg/dl (8.4-10.2); Carbon Dioxide 26 mmol/L (22-30); Chloride 109 mmol/L (98-107); Estimated Creatinine Clearance 60 ml/min; Glucose 139 mg/dl (70-99); Potassium 3.9 mmol/L (3.5-5.1); Sodium 142 mmol/L (135-145); eGFR > 60.00
[2024-08-26] MEDS: SYNTHROID 125 MCG PO (05:39)
[2024-08-26] MEDS: LASIX 20 MG PO (07:57)
[2024-08-26] MEDS: ASPIR LOW (ENTERIC COATED) 81 MG PO (07:57)
[2024-08-26] MEDS: ZETIA 10 MG PO (07:57)
[2024-08-26 08:00] LABS: Glucose - Point of Care 148 mg/dl (70-99)
[2024-08-26] MEDS: NOVOLOG FLEXPEN-MODERATE RESISTANCE SC ×2 (08:28→16:39)
--- NOTE | 2024-08-26 10:43 | W.PN.HOSP.TC ---
Today's Communication/Plan
-
Assessment / Plan
Assessment / Plan
NAD
Scleral Anicteric
MMM
No JVD
CTABL
RRR, S1/S2
Soft, NT, ND, BS+
Warm, Dry
AAOx3, 5/5 motor strength in bilateral lower and upper extremities, good ghiqyq-ct-dqtg, nkoq-eo-vtgj with good coordination
Slight facial droop worse on the left side than the right
Calm
Acute CVA, NIH improving, s/p TNK at around 3 PM in the ER
Neurology following
CT brain without evidence of acute intracranial abnormality, CTA head and neck no evidence of intracranial large vessel occlusion with noted mild ICA disease bilaterally worse in the left than the right need continued outpatient follow-up for this
MRI brain without acute infarct
Aspirin started
Continue Zetia, has known history of statin induced myalgias
PT OT acute rehab recommended, consult physiatry
Per nursing bedside dysphagia screen completed past
Has Rodriguez catheter that can likely be removed after 24 hours of TNK
Per neurology recommend BALDO as concern for embolic, cardiology consult
Hypothyroidism
Continue levothyroxine
Hypertension
Start antihypertensives as able to
Anticipated Discharge: 24 - 48 hours
Subjective/Interval History
-
Date of Service: August 26, 2024
Seen and examined. No new complaint. No acute overnight events.
Objective Data
-
Labs:
Laboratory Results
08/26/24
03:48
WBC 12.0 H
Hgb 13.4
Hct 41.9
Plt Count 231
Sodium 142
Potassium 3.9
Chloride 109 H
Carbon Dioxide 26
BUN 25 H
Creatinine 0.8
Glucose 139 H
Calcium 9.5
Vital Signs:
Vital Signs
Temp Pulse Resp BP Pulse Ox
98 F 87 32 127/69 94
08/26/24 07:21 08/26/24 10:00 08/26/24 10:00 08/26/24 08:44 08/26/24 08:44
I&O
08/25/24 08/26/24 08/27/24
06:59 06:59 06:59
Intake Total 360 / 360
Output Total 1690 / 1720 805 / 835 340 / 340
Balance -1690 / -1720 -445 / -475 -340 / -340
--- NOTE | 2024-08-26 10:55 | CON.CAR ---
Consultation
Consultation Request
Date/Time Consultation Requested: August 26, 2024
Date/Time Consultation Performed: August 26, 2024
Requesting Provider: Dr. Lr
Performing Provider: Dr. Shah
Reason for Consultation: CVA, BALDO requested
Medical History
-
Chief Complaint: Dysarthria/aphasia
History of Present Illness:
Mary is an 79-year-old female with past medical history significant for CAD status post PCI LAD May 2021, hyperlipidemia, hypertension, DM 2, mild aortic stenosis who developed acute dysarthria and was admitted for CVA. CT and CTA were
performed and negative for any acute hemorrhage or large vessel occlusion. She received TNK with improvement in speech. She was evaluated by neurology and recommended evaluation for BALDO and consideration for further monitoring through cardiology.
She still has some word finding and slowness to speak she states. No chest pain shortness of breath palpitations. There is no history of atrial fibrillation. Patient's niece is medical POA and helps with history.
She was last seen by Dr. Overton June 2024. At that time Crestor was stopped due to side effects and she was started on Lipitor. She had side effects with Lipitor and Zetia was started and subsequently stopped due to side effects. She was going
to be reevaluated as an outpatient for consideration for PCSK9 inhibitor therapy.
Past medical history:
CAD status post PCI LAD May 2021
Hyperlipidemia
Statin intolerance with at least 2 statins
Hypertension
DM 2
Hypothyroidism
Obesity
Past surgical history:
Right total knee replacement September 2023
Cholecystectomy
Hysterectomy
D and C
Right meniscus repair
Right shoulder repair
Perianal fistula
Echo June 2023: Normal LV function, EF 59%, mild MR, mild with peak/mean gradients of 18/9 mmHg. Aortic valve area is 1.9 cm2. Pulmonary artery pressure 30 to 35 mmHg. Trivial pericardial effusion.
Social History
Tobacco: Former Smoker (Quit 40 years ago)
Alcohol: Occasional (Socially once a year)
Drug: None
Living: Alone
Family History
Family History: Early CAD (Her father had NC at 55 and 60 and of NC age 60. Mother had valve replacement in her 80s)
Allergies / Home Medications
Allergy/AdvReac Type Severity Reaction Status Date / Time
BOBBY Inhibitors Allergy COUGH Verified 08/24/24 17:57
adhesive tape [Adhesive Tape] Allergy skin very Verified 05/21/21 13:10
red and
sore
epinephrine [Epinephrine] AdvReac fast heart Verified 08/24/24 18:29
rate
during
dental
procedure
metformin AdvReac DIARRHEA Verified 08/24/24 18:29
oxycodone [From Percocet] AdvReac HYPERACTIVE Verified 08/24/24 18:29
Wioqvqp-MES-DyX Reductase AdvReac MUSCLE Verified 08/24/24 18:29
Inhibitor CRAMPS
�Medication �Instructions �Recorded �Confirmed �Type
amlodipine 10 mg tablet 10 mg PO DAILY 05/21/21 08/24/24 History
furosemide 20 mg tablet 20 mg PO DAILY 05/21/21 08/24/24 History
insulin degludec 100 unit/mL 25 unit SC DAILY 05/21/21 08/24/24 History
subcutaneous solution (Tresiba
U-100 Insulin)
levothyroxine 125 mcg tablet 125 mcg PO DAILY 05/21/21 08/24/24 History
multivitamin 1 ea PO DAILY 05/21/21 08/24/24 History
omega 7-tsn-jtm-fish oil 60 mg-90 1 ea PO DAILY 05/21/21 08/24/24 History
mg-500 mg capsule
aspirin 81 mg tablet,delayed 81 mg PO DAILY 08/24/24 08/24/24 History
release
bimatoprost 0.01 % eye drops 1 drp BOTH EYES QPM 08/24/24 08/24/24 History
(Lumigan)
docusate sodium 100 mg capsule 100 mg PO HS 08/24/24 08/24/24 History
dorzolamide 22.3 mg-timolol 6.8 1 drp BOTH EYES BID 08/24/24 08/24/24 History
mg/mL eye drops
ezetimibe 10 mg tablet 10 mg PO DAILY 08/24/24 08/24/24 History
magnesium 250 mg tablet 250 mg PO DAILYPRN PRN as directed 08/24/24 08/24/24 History
nateglinide 60 mg tablet 60 mg PO AC 08/24/24 08/24/24 History
psyllium dyez-lqld-mxxv gum-pectin 620 cap PO DAILYPRN PRN 08/24/24 08/24/24 History
620 mg capsule (Fiber Fusion Daily) constipation
Review of Systems
-
History Source: Patient
All other systems: Negative unless noted
Neurological: Other (Dysarthria/aphasia)
Physical Exam
Vital Signs
Temp Pulse Resp BP Pulse Ox
98 F 87 32 127/69 94
08/26/24 07:21 08/26/24 10:00 08/26/24 10:00 08/26/24 08:44 08/26/24 08:44
Physical examination:
General: No acute distress, AAOX3
Neck: Negative JVD
Heart: Regular, Negative S3 positive S1/S2, Negative S4, No murmur
Lungs: CTA b/l, negative wheezes/rales/rhonchi
Abd: Positive BS, NT/ND, neg rebound/rigidity/guarding
Ext: Negative cyanosis/clubbing/edema
Neuro: nonfocal
Lab Results
08/26/24 03:48
08/26/24 03:48
Impression / Plan
-
.
Primary juice standardizer Dr. Overton
Impression:
Dysphasia with concern acute CVA status post TNK
CAD status post PCI LAD May 2021
Hyperlipidemia
Statin intolerance with at least 2 statins
Hypertension
DM 2
Hypothyroidism
Obesity
Echo June 2023: Normal LV function, EF 59%, mild MR, mild with peak/mean gradients of 18/9 mmHg. Aortic valve area is 1.9 cm2. Pulmonary artery pressure 30 to 35 mmHg. Trivial pericardial effusion.
Plan:
Discussed BALDO to evaluate for cardiac source of embolus, LV thrombus. Procedure including risks and benefits were discussed and the patient is agreeable.
Continue telemetry monitoring. Discussed that if the patient develops atrial fibrillation that medication therapy would be transition to anticoagulation once okay with neurology.
Check 2-week monitor at discharge to evaluate for atrial fibrillation. If this is negative, the patient could be considered for implantable monitor. Monitoring was discussed in detail.
Reevaluate LV function at the time of BALDO.
LDL goal is at least less than 70. Patient adds intolerance to statins and Zetia. Patient will be considered for PCSK9 inhibitor as outpatient.
Niece, who is medical POA, at bedside and understands and agrees with current status and plan of care.
Discussed with nursing.
Data Reviewed
-
EKG: Tracing Personally Visualized and interpreted
CT Scan: Report Reviewed by me
MRI: Report Reviewed by me
Labs: Labs Reviewed by me
Old Records: Reviewed
[2024-08-26 11:37] LABS: Glucose - Point of Care 183 mg/dl (70-99)
[2024-08-26] MEDS: NOVOLOG FLEXPEN-MODERATE RESISTANCE 1 UNITS SC (12:11)
--- NOTE | 2024-08-26 13:23 | PTCARENOTE ---
Rec'd pt at 0700. Pt AAOx3, follows commands, JANE. NIHSS-0. Monitor SR. Lungs CTA. +BS. Jennifer jose'd at 1000. Pt voiding in bathroom. OOB with PT/OT to recliner chair. Pt with 2 instances of slight expressive aphasia/word finding which then resolved
within 10min. aware. Family at bedside. Pt transferred to tele room 336-2 via wheelchair, family accompanying pt.
--- NOTE | 2024-08-26 13:30 | W.PN.INTV ---
Today's Communication / Plan
Recommendations
- Patient stable for transferring out of ICU
- Chip Mixer service will sign off, please call as needed.
Assessment
-
Patient is a 79-year-old female with known history of coronary artery disease and diabetes who was brought to the emergency room for abnormal speech. Apparently change in speech started while she was talking on the phone with the family member. In
the emergency room stroke alert was called and patient subsequently had a CT and CTA performed which was negative for any acute intracranial hemorrhage or large vessel occlusion. TNK was given for suspected underlying acute CVA. Patient was
subsequently admitted to the ICU and facility sales and admin consult was requested for further input.
#1. Dysphagia with concern for acute stroke
- S/p TNK. Speech improved, appears to be at baseline. During my evaluation on 08/26, speech was normal. Reportedly she had self limiting dysarthria earlier in the morning
- MRI negative for acute stroke
- Continue telemetry monitoring for any A fib/A flutter. Might need BALDO vs prolonged rhythm monitoring
- Neurology service on case
- Permissive hypertension. Hold antiplatelets anticoagulant for first 24 hours and follow on further recommendations from neurology service
- Mild to moderate carotid artery stenosis noted on imaging
#2. History of coronary artery disease, s/p PCI in 2021
- EKG unremarkable, no chest pain reported
- ASA resumed. Zetia 10 mg daily.
Other medical diagnoses:
-DM. SSI
-Hypothyroidism. On replacement
Heparin for DVT prophylaxis.
Critical Care time 41 min-- The patient is admitted for acute critical illness for the treatment of vital organ failure and/or prevention of further life-threatening conditions. Total care includes time spent in review of history, physical exam,
medications, hemodynamic/ventilator parameters, laboratory data, imaging and discussion with house staff, pharmacy, respiratory therapy, construction trench digger, and nursing.
Data:
CXR 08/2024: Lungs are hypoinflated with resultant crowding of bronchovascular markings.
Mild elevation of the left hemidiaphragm.
CT/CTA Head 08/2024:
- Negative for acute abnormality
- No evidence for intracranial large vessel occlusion.
- Aberrant medial course of the common carotid arteries, carotid bulbs, and proximal internal carotid arteries bilaterally. Less than 25% diameter reduction of the right carotid bulb and proximal right ICA.
- Moderate atherosclerotic disease involving the proximal left ICA with measured diameter reduction of 55%. This could represent a hemodynamically significant stenosis. Further evaluation with cerebrovascular ultrasound could be attempted, but may
be technically difficult because of the apparent medial course of the common carotid and proximal internal carotid arteries.
- No significant narrowing of the vertebral or basilar arteries, with no evidence to suggest dissection
ECHO 06/2023: Normal left ventricular size, wall thickness and systolic function. No gross
regional wall motion abnormalities are seen. Estimated ejection fraction is
59%. Normal diastolic function.
Normal right ventricular size and function.
Mild mitral regurgitation.
Thickened trileaflet aortic valve with reduced leaflet excursion. Mild aortic
stenosis. Peak/mean gradients across the aortic valve are 18/9 mmHg. Aortic
valve area is 1.9 cm2. Trace aortic regurgitation.
Estimated pulmonary artery pressure of 30-35 mmHg. Assuming a right atrial
pressure of 3 mmHg.
Trivial pericardial effusion.
Cardiac Cath 05/2021: 1. Complex but successful stenting of the proximal to mid LAD with overlapping 3.0 x 28 mm and 3.0 x 18 mm Xience stents. The stented segment was postdilated with a 3.25 mm noncompliant balloon between 16 and 18 angus from the
proximal to midportion of the stent and at nominal pressures on the distal stent edge.
2. Preserved left ventricular function
Subjective Dataa
Subjective Data
Date of Service:
Date of Service: August 26, 2024
Subjective:
Patient comfortably sitting in the chair in no acute distress.
Review of Systems
Genitourinary: Other (All 14 systems reviewed and negative except as stated above in the history of present illness.)
Objective Data
Data Reviewed
Vital Signs / I&O / Oxygen:
Vital Signs
Temp Pulse Resp BP Pulse Ox
98.1 F 119 32 105/59 94
08/26/24 11:30 08/26/24 13:00 08/26/24 10:00 08/26/24 12:00 08/26/24 08:44
Intake and Output
08/25/24 08/26/24 08/27/24
06:59 06:59 06:59
Intake Total 360 / 360 240 / 240
Output Total 1690 / 1720 805 / 835 340 / 340
Balance -1690 / -1720 -445 / -475 -100 / -100
SaO2 94
Nasal Cannula flow liters per 2
minute
Physical Exam
General: Comfortable
HEENT: Normocephalic
Cardiovascular: S1-S2
Respiratory: Clear and Non-Labored Respirations
GI: Soft and Distended
Neurology: Awake, Alert and Oriented
Skin: Warm
Labs/Micro/Reports
Lab Data
08/26/24 03:48
08/26/24 03:48
[2024-08-26] MEDS: HEPARIN 5000 UNITS SC ×2 (16:13→23:46)
[2024-08-26 16:38] LABS: Glucose - Point of Care 103 mg/dl (70-99)
[2024-08-26] MEDS: XALATAN OPHTHALMIC SOLUTION BOTH EYES ×2 (17:45→17:57)
[2024-08-26 21:27] LABS: Glucose - Point of Care 134 mg/dl (70-99)
[2024-08-27] VITALS (8 sets, daily range): BP systolic 129–152; BP diastolic 46–84; PULSE 82–84
[2024-08-27] MEDS: SYNTHROID 125 MCG PO (05:56)
[2024-08-27 07:15] LABS: Glucose - Point of Care 147 mg/dl (70-99)
[2024-08-27] MEDS: ZETIA 10 MG PO (07:23)
[2024-08-27] MEDS: NOVOLOG FLEXPEN-MODERATE RESISTANCE SC ×2 (07:23→16:48)
[2024-08-27] MEDS: XALATAN OPHTHALMIC SOLUTION 1 DROP BOTH EYES (07:24)
[2024-08-27] MEDS: ASPIR LOW (ENTERIC COATED) 81 MG PO (07:24)
[2024-08-27] MEDS: LASIX 20 MG PO (07:24)
[2024-08-27] MEDS: HEPARIN 5000 UNITS SC ×3 (07:24→23:28)
--- NOTE | 2024-08-27 07:33 | W.PN.HOSP.TC ---
Today's Communication/Plan
-
BALDO
Physiatry consult
Discharge planning with rehabilitation caseworker
Assessment / Plan
Assessment / Plan
Impression
Patient is an 60-jrjx-rsy-year-female with known history of coronary artery disease and diabetes, presented to emergency room for abnormal speech. In the emergency room stroke alert was called and patient had a CT and CTA performed which was
negative for any acute intracranial hemorrhage or large vessel occlusion. S/p TNK for acute CVA. Remained in ICU for 24 hours. Initially presented with aphasia and then she had left-sided neglect, neurology suspected embolic stroke of unknown
origin as she has no past history of A-fib. Cardiology consultation for BALDO and mild carotid disease was done. Patient due to have BALDO today. Last echo done in June, estimated ejection fraction 59%, mild MR, normal left and right
ventricular function.
Assessment/plan
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
CT brain without any acute intracranial abnormality, CTA head and neck with no evidence of large vessel occlusion with noted mild ICA disease bilaterally worse in left than the right
S/p TNK
MRI brain without acute infarct
Neurology following, appreciate recommendations-continue aspirin and Zetia (history of myalgias with statin use)
Cardiology consult appreciated-BALDO today,2-week monitor at discharge to evaluate for atrial fibrillation, outpatient discussion regarding implantable monitor
LDL goal is less than 70 for the patient, outpatient follow-up
PT OT done-acute rehab recommended
Awaiting physiatry consult
Other stable medical conditions
CAD status post PCI LAD May 2021
Hyperlipidemia
Statin intolerance with at least 2 statins
Hypertension
DM 2
Hypothyroidism
Obesity
DVT prophylaxis
CODE STATUS
Anticipated Discharge: 24 - 48 hours
Subjective/Interval History
-
Date of Service: August 27, 2024
No active issues, speech issue resolved, strength 5/5 in all limbs, mobile, tolerating diet
Objective Data
-
Vital Signs:
Vital Signs
Temp Pulse Resp BP Pulse Ox
97.8 F 65 18 129/46 94
08/27/24 03:00 08/27/24 07:24 08/27/24 03:00 08/27/24 07:24 08/27/24 03:00
I&O
08/26/24 08/27/24 08/28/24
06:59 06:59 06:59
Intake Total 360 / 360 480 / 480
Output Total 805 / 835 340 / 340
Balance -445 / -475 140 / 140
Review of Systems
-
All other systems: Reviewed and negative
Physical Exam
-
General: Well Developed and No Apparent Distress
HEENT: Moist Mucous Membranes
Respiratory: Clear to Auscultation; Negative Wheezes, Rales or Rhonchi
Cardiac: Regular Rhythm and S1/S2
GI: Soft, Nontender, Nondistended and Normal Bowel Sounds
Musculoskeletal: No Clubbing, No Cyanosis and No Edema
Skin: Warm and Dry
Neuro: Awake, Oriented and No Motor Deficits
Psych: Calm
--- NOTE | 2024-08-27 07:58 | PTCARENOTE ---
08/26/24 1320 Patient received via wheelchair from ICU, accompanied by ICU nurse. Pt oriented to staff, environment and call light system. Pt ambulated with steady gait from wheelchair to bed with stand by assistance. NIH done at bedside with ICU
nurse and documented, without any changes from prior. All needs met.
[2024-08-27 11:30] LABS: Glucose - Point of Care 166 mg/dl (70-99)
[2024-08-27] MEDS: NON-FORMULARY ITEM 1 DROP BOTH EYES ×2 (12:33→20:21)
[2024-08-27] MEDS: NOVOLOG FLEXPEN-MODERATE RESISTANCE 1 UNITS SC (13:54)
--- NOTE | 2024-08-27 14:48 | CM ---
Spoke to PT and met with patient and family. recommendations from therapy are [facility] at . Patient and family agree. Referral in allscripts.
--- NOTE | 2024-08-27 15:00 | W.PN.UPDATE ---
Update Note
Progress Note Update
Seen and examined by me independently in collaboration with the medical delivery technician.
Lab data and imaging data reviewed.
Addendum as below :
Resolved symptoms of stroke-expressive aphasia. Suspected embolic stroke and ongoing evaluation. BALDO as per neuro recs.
Consult to PM&R for acute rehab evaluation.
DW Dr Yariel Stephens her nephew at bedside and updated clincals and tx plans.
[2024-08-27 16:49] LABS: Glucose - Point of Care 138 mg/dl (70-99)
[2024-08-27 20:35] LABS: Glucose - Point of Care 155 mg/dl (70-99)
[2024-08-28] VITALS (7 sets, daily range): BP systolic 106–150; BP diastolic 49–77; PULSE 68; BMI 32.6
[2024-08-28 05:38] LABS: Hematocrit 42.4 % (37.0-47.0); Hemoglobin 13.6 g/dL (12.0-16.0); Mean Corp Hgb Conc. 32.1 g/dL (33.0-37.0); Mean Corpuscular Hgb 27.1 pg (27.0-31.0); Mean Corpuscular Volume 84.5 fL (81.0-99.0); Mean Platelet Volume 10.8 fL (7.4-10.4); Platelet Count 232 10^3/uL (130-400); Red Blood Cell Count 5.02 10^6/uL (4.20-5.40); Red Cell Dist. Width 13.3 % (11.5-14.5); White Blood Cell Count 10.1 10^3/uL (4.8-10.8)
[2024-08-28 05:59] LABS: Blood Urea Nitrogen 29 mg/dl (7-17); Calcium 9.3 mg/dl (8.4-10.2); Carbon Dioxide 25 mmol/L (22-30); Chloride 109 mmol/L (98-107); Estimated Creatinine Clearance 60 ml/min; Glucose 170 mg/dl (70-99); Sodium 140 mmol/L (135-145); eGFR > 60.00
[2024-08-28] MEDS: SYNTHROID 125 MCG PO (06:27)
--- NOTE | 2024-08-28 07:19 | W.PN.HOSP.TC ---
Addendum entered and electronically signed by Dennis Bailon MD 08/28/24 14:29:
Seen and examined by me independently in collaboration with the infertility medical assistant.
Lab data and imaging data reviewed.
Addendum as below :
Resolved speech impairment/aphasia.
Finished BALDO which showed small PFO but felt unlikely to be the mechanism of his CVA and based on her age not a candidate for surgical repair. Cardiology to arrange 2-week cardiac monitoring as an outpatient on discharge.
Patient now agreeable for rehab. Physiatry consulted.
Appreciate neurology input-continue with aspirin for 6 months and reevaluate. PCP is K9 inhibitor treatment evaluation as an outpatient.
Medically stable for discharge.
Original Note:
Today's Communication/Plan
-
BALDO
Physiatry consult
Discharge planning
Assessment / Plan
Assessment / Plan
Impression
Patient is an 23-iaxs-vwl-year-female with known history of coronary artery disease and diabetes, presented to emergency room for abnormal speech. In the emergency room stroke alert was called and patient had a CT and CTA performed which was
negative for any acute intracranial hemorrhage or large vessel occlusion. S/p TNK for acute CVA. Remained in ICU for 24 hours. Initially presented with aphasia and then she had left-sided neglect, neurology suspected embolic stroke of unknown
origin as she has no past history of A-fib. Cardiology consultation for BALDO and mild carotid disease was done. Patient due to have BALDO today. Last echo done in June, estimated ejection fraction 59%, mild MR, normal left and right
ventricular function.
Assessment/plan
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
CT brain without any acute intracranial abnormality, CTA head and neck with no evidence of large vessel occlusion with noted mild ICA disease bilaterally worse in left than the right
S/p TNK on 08/24
MRI brain without acute infarct
Neurology following, recommendations appreciated-continue aspirin for 6 months and then reconsider, outpatient PCSK9 inhibitor, Holter monitoring for A-fib
BALDO done-CONCLUSIONS
Normal biventricular size and systolic function without regional wall motion
abnormality. LVEF 60-65%.
Small PFO.
Atherosclerotic plaque in the aortic arch.
No intracardiac thrombus.
No significant valvular abnormalities.
Cardiology recs appreciated-BALDO done, small PFO unlikely to be the mechanism of her CVA and based on her age not a candidate for closure, continue aspirin, continue Zetia and arrange for PCSK9 inhibitor on outpatient basis, cardiology signed off
LDL goal less than 70
PT OT done-acute rehab recommended
funeral service manager following
Awaiting physiatry consult
Other stable medical conditions
CAD status post PCI LAD May 2021
Hyperlipidemia
Statin intolerance with at least 2 statins
Hypertension
DM 2
Hypothyroidism
Obesity
DVT prophylaxis
CODE STATUS
Anticipated Discharge: 24 - 48 hours
Subjective/Interval History
-
Date of Service: August 28, 2024
No active issues, resolved symptoms of abnormal speech, moving around, tolerating diet
Objective Data
-
Labs:
Laboratory Results
08/28/24
05:11
WBC 10.1
Hgb 13.6
Hct 42.4
Plt Count 232
Sodium 140
Potassium 4.0
Chloride 109 H
Carbon Dioxide 25
BUN 29 H
Creatinine 0.8
Glucose 170 H
Calcium 9.3
Vital Signs:
Vital Signs
Temp Pulse Resp BP Pulse Ox
97.6 F 75 18 125/59 96
08/28/24 07:16 08/28/24 07:16 08/28/24 07:16 08/28/24 07:16 08/28/24 07:16
I&O
08/27/24 08/28/24 08/29/24
06:59 06:59 06:59
Intake Total 480 / 480 1500 / 1500
Output Total 340 / 340
Balance 140 / 140 1500 / 1500
Review of Systems
-
All other systems: Reviewed and negative
Physical Exam
-
General: Well Developed and No Apparent Distress
HEENT: Moist Mucous Membranes and Anicteric
Respiratory: Clear to Auscultation; Negative Wheezes, Rales or Rhonchi
Cardiac: Regular Rhythm and S1/S2
GI: Soft, Nontender, Nondistended and Normal Bowel Sounds
Musculoskeletal: No Clubbing, No Cyanosis and No Edema
Skin: Warm and Dry
Neuro: Awake, Oriented, No Motor Deficits and Other (Clear speech)
Psych: Calm
[2024-08-28 07:29] LABS: Glucose - Point of Care 177 mg/dl (70-99)
[2024-08-28] MEDS: ASPIR LOW (ENTERIC COATED) 81 MG PO (08:14)
[2024-08-28] MEDS: ZETIA 10 MG PO (08:14)
[2024-08-28] MEDS: LASIX 20 MG PO (08:14)
[2024-08-28] MEDS: HEPARIN 5000 UNITS SC ×3 (08:15→23:39)
[2024-08-28] MEDS: XALATAN OPHTHALMIC SOLUTION 1 DROP BOTH EYES (08:15)
[2024-08-28] MEDS: NON-FORMULARY ITEM 1 DROP BOTH EYES ×2 (08:16→20:25)
[2024-08-28] MEDS: NOVOLOG FLEXPEN-MODERATE RESISTANCE SC ×2 (08:19→12:40)
--- NOTE | 2024-08-28 10:49 | W.PN.CARDCBS ---
Addendum entered and electronically signed by Gunnar Anderson MD 08/28/24 12:44:
I saw and examined the patient.
The Steelworker's note was reviewed and I agree with the note.
Comment: Briefly, 79-year-old woman presenting with expressive aphasia concerning for CVA and cardiology was asked to assess for cardioembolic source of stroke
Telemetry reviewed, she has been maintaining sinus rhythm here
Underwent transesophageal echo earlier today which did identify small PFO however this is unlikely to be the mechanism of her CVA and based on her age she would not be a candidate for closure
Recommend long-term outpatient nutrition faculty member to assess for occult atrial fibrillation, we will place a 2-week monitor at the time of discharge
Agree with aspirin 81 mg daily.
Unfortunately intolerant to multiple statins in the past. Continue Zetia and we can arrange for PCSK9 inhibitor as an outpatient.
Stable cardiac status, we will sign off
Outpatient follow-up has been arranged
Original Note:
Today's Communication / Plan
-
BALDO today
2 week rhythm star to be placed prior to discharge
PT/OT/speech therapy
Tentative plan to go to [place] re[facility] in next 24 hours
Outpatient cardiology follow up arranged
Impression / Plan
-
.
Primary chronic specialist Dr. Overton
Impression:
Presented 08/24/2024 with acute onset of speech difficulty and severe headache
Dysphasia with concern acute CVA
status post TNK
MRI was negative for stroke
PFO by BALDO 08/28/24
CAD
status post PCI LAD May 2021
Hyperlipidemia
Statin intolerance with at least 2 statins
Hypertension
DM 2
Hypothyroidism
Obesity
Echo June 2023: Normal LV function, EF 59%, mild MR, mild with peak/mean gradients of 18/9 mmHg. Aortic valve area is 1.9 cm2. Pulmonary artery pressure 30 to 35 mmHg. Trivial pericardial effusion.
BALDO 08/28/2024:Preliminary report no cardiac source of thrombus, small PFO with Right to left shunting
CTA head 08/24/2024: No evidence of intracranial embolism, occlusion or dissection
Plan:
Presented 08/24/2024 with acute onset of speech difficulty and severe headache with ongoing dysphasia, left-sided neglect with concern acute CVA. Patient was provided TNK.
- MRI negative for acute stroke, embolism occlusion or dissection of intracranial vessels
- Continue aspirin, Zetia (patient has longstanding history of statin intolerance)
- Preliminary BALDO 08/28/2024 Preliminary report no cardiac source of thrombus, small PFO with Right to left shunting.
Review of telemetry no arrhythmias noted. Continue telemetry monitoring. If she should develop atrial fibrillation then would need to transition from antiplatelet therapy to anticoagulation. Will leave to neurology if pt should be on DAPT w/ Plavix
and ASA for 21 days.
Patient to wear 2-week monitor rhythm star at discharge to evaluate for atrial fibrillation. If this is negative, considered for implantable monitor. Monitoring was discussed in detail.
LDL goal is at least less than 70. Patient adds intolerance to statins and Zetia. Patient will be considered for PCSK9 inhibitor as outpatient.
.
Progress Note - Sand Mixer Machine
Subjective
Date of Service: August 28, 2024
Patient seen and examined. Patient overall feeling well. Feels speech has for the most part return to baseline but still occasionally has difficulty finding words.
Objective
Labs:
08/28/24 05:11
08/28/24 05:11
Labs
Hgb 13.6 g/dL (12.0-16.0) 08/28/24 05:11
Hct 42.4 % (37.0-47.0) 08/28/24 05:11
Plt Count 232 10^3/uL (130-400) 08/28/24 05:11
PT 13.3 Sec (11.4-14.6) 08/25/24 03:21
INR 0.98 08/25/24 03:21
APTT 33.8 Sec (23.4-35.0) 08/25/24 03:21
Sodium 140 mmol/L (135-145) 08/28/24 05:11
Potassium 4.0 mmol/L (3.5-5.1) 08/28/24 05:11
BUN 29 mg/dl (7-17) H 08/28/24 05:11
Creatinine 0.8 mg/dL (0.6-1.0) 08/28/24 05:11
Glucose 170 mg/dl (70-99) H 08/28/24 05:11
Vital Signs and I&O:
Vital Signs
Temp Pulse Resp BP Pulse Ox
97.6 F 75 18 125/59 96
08/28/24 07:16 08/28/24 07:16 08/28/24 07:16 08/28/24 07:16 08/28/24 07:16
Vital Signs
Temp Pulse Resp BP Pulse Ox
97.6 F 75 18 125/59 96
08/28/24 07:16 08/28/24 07:16 08/28/24 07:16 08/28/24 07:16 08/28/24 07:16
Intake & Output
08/26/24 08/27/24 08/28/24 08/29/24
06:59 06:59 06:59 06:59
Intake Total 360 / 360 480 / 480 1500 / 1500
Output Total 805 / 835 340 / 340
Balance -445 / -475 140 / 140 1500 / 1500
Physical Exam
Physical Exam
GEN: No distress, awake, Ox3, lying in bed
HEENT: supple, anicteric, mmm
LUNGS: CTA, no wheezes/rales
CV: Reg, S1/S2, no murmur, rub or gallop
ABD: soft, BS+, NT/ND
EXT: No edema, clubbing or cyanosis
NEURO: Gross non-focal
SKIN: No rash, warm, dry, pink
--- NOTE | 2024-08-28 11:13 | W.PN.NEURO.1 ---
Today's Communication / Plan
-
additional outpatient afib monitoring by Holter monitor 72 hours, please
low yield to Echo
started ASA 81 mg and continue for 6 months then reconsider
add as outpatient PCSK9 inhibitor due to LDL > 70 on Ezetimibe
Neuro Assessment/Plan
Assessment
Head CT imgs and rept rev'd, mild diffuse atrophy and microvascular changes
CTA head/neck no LVO, mild carotid plaque bilaterally without hemodynamically significant stenosis
repeat head CT yesterday evening no bleed
repeat CTA head no LVO
MRI without acute or prior ischemic lesions
Acute onset aphasia and headache, patient received TNK
DDX with normal MRI of brain includes migraine with aura, TIA, exposed neurocognitive decline
Plan
additional outpatient afib monitoring by Holter monitor 72 hours, please
low yield to Echo
started ASA 81 mg and continue for 6 months then reconsider
add as outpatient PCSK9 inhibitor due to LDL > 70 on Ezetimibe
outpatient headache evaluation
outpatient cognitive evaluation
goal of normotension
goal of normoglycemia
medical educational materials to be added
Will follow as outpatient
Subjective/Objective
Subjective Data
Date of Service: August 28, 2024
Objective Data
Vital Signs
Temp Pulse Resp BP Pulse Ox
36.4 C 75 18 125/59 96
08/28/24 07:16 08/28/24 07:16 08/28/24 07:16 08/28/24 07:16 08/28/24 07:16
Lab Results
08/28/24 05:11
08/28/24 05:11
PT 13.3 Sec (11.4-14.6) 08/25/24 03:21
INR 0.98 08/25/24 03:21
APTT 33.8 Sec (23.4-35.0) 08/25/24 03:21
Sodium 140 mmol/L (135-145) 08/28/24 05:11
Potassium 4.0 mmol/L (3.5-5.1) 08/28/24 05:11
BUN 29 mg/dl (7-17) H 08/28/24 05:11
Glucose 170 mg/dl (70-99) H 08/28/24 05:11
Calcium 9.3 mg/dl (8.4-10.2) 08/28/24 05:11
LDL Cholesterol, Calc 144 mg/dl 08/25/24 03:21
Patient Allergies
BOBBY Inhibitors Allergy (Verified 08/24/24 17:57)
COUGH
adhesive tape [Adhesive Tape] Allergy (Verified 05/21/21 13:10)
skin very red and sore
epinephrine [Epinephrine] Adverse Reaction (Verified 08/24/24 18:29)
fast heart rate during dental procedure
metformin Adverse Reaction (Verified 08/24/24 18:29)
DIARRHEA
oxycodone [From Percocet] Adverse Reaction (Verified 08/24/24 18:29)
HYPERACTIVE
Woznfmy-PXU-EuQ Reductase Inhibitor Adverse Reaction (Verified 08/24/24 18:29)
MUSCLE CRAMPS
Data Reviewed
-
CT Head: Report Reviewed
MRI Head: Report Reviewed
Labs: Report Reviewed
Lipid Profile: Report Reviewed
Reviewed with: Physician
Old Records: Summarized
--- NOTE | 2024-08-28 11:49 | CM ---
CM following for discharge planning.
[facility] anticipated pending insurance approval and medical stability.
Pt is currently off the floor for testing.
Plan: CM to coordinate transfer to [facility].
[2024-08-28 12:04] LABS: Glucose - Point of Care 125 mg/dl (70-99)
[2024-08-28 16:35] LABS: Glucose - Point of Care 171 mg/dl (70-99)
[2024-08-28] MEDS: NOVOLOG FLEXPEN-MODERATE RESISTANCE 1 UNITS SC (17:02)
[2024-08-28] MEDS: TYLENOL 650 MG PO (20:35)
[2024-08-28 21:37] LABS: Glucose - Point of Care 122 mg/dl (70-99)
[2024-08-29 03:00] VITALS: BP 131/56
[2024-08-29 04:55] VITALS: BMI 32.5
[2024-08-29] MEDS: SYNTHROID 125 MCG PO (05:33)
[2024-08-29 06:23] LABS: Hematocrit 42.7 % (37.0-47.0); Hemoglobin 13.6 g/dL (12.0-16.0); Mean Corp Hgb Conc. 31.9 g/dL (33.0-37.0); Mean Corpuscular Hgb 26.8 pg (27.0-31.0); Mean Corpuscular Volume 84.2 fL (81.0-99.0); Mean Platelet Volume 11.2 fL (7.4-10.4); Platelet Count 232 10^3/uL (130-400); Red Blood Cell Count 5.07 10^6/uL (4.20-5.40); Red Cell Dist. Width 13.2 % (11.5-14.5); White Blood Cell Count 9.7 10^3/uL (4.8-10.8)
[2024-08-29 06:40] LABS: Blood Urea Nitrogen 22 mg/dl (7-17); Calcium 9.4 mg/dl (8.4-10.2); Carbon Dioxide 24 mmol/L (22-30); Chloride 109 mmol/L (98-107); Estimated Creatinine Clearance 59 ml/min; Glucose 156 mg/dl (70-99); Magnesium 1.9 mg/dl (1.6-2.3); Potassium 3.9 mmol/L (3.5-5.1); Sodium 141 mmol/L (135-145); eGFR > 60.00
[2024-08-29 07:32] VITALS: BP 117/71
[2024-08-29 07:47] LABS: Glucose - Point of Care 198 mg/dl (70-99)
[2024-08-29] MEDS: NOVOLOG FLEXPEN-MODERATE RESISTANCE 1 UNITS SC ×2 (08:14→16:58)
[2024-08-29] MEDS: ZETIA 10 MG PO (08:17)
[2024-08-29] MEDS: HEPARIN 5000 UNITS SC ×2 (08:17→16:58)
[2024-08-29] MEDS: ASPIR LOW (ENTERIC COATED) 81 MG PO (08:17)
[2024-08-29] MEDS: LASIX 20 MG PO (08:17)
[2024-08-29] MEDS: NON-FORMULARY ITEM 2 DROP BOTH EYES (08:18)
[2024-08-29] MEDS: XALATAN OPHTHALMIC SOLUTION BOTH EYES (08:19)
[2024-08-29] MEDS: TYLENOL 650 MG PO (10:36)
[2024-08-29 10:57] VITALS: BP 136/65
[2024-08-29 12:01] VITALS: BP 120/74; BP 130/57; PULSE 63; O2SAT 97
[2024-08-29 12:01] LABS: Glucose - Point of Care 126 mg/dl (70-99)
[2024-08-29] MEDS: NOVOLOG FLEXPEN-MODERATE RESISTANCE SC (12:13)
--- NOTE | 2024-08-29 12:21 | W.PN.HOSP.TC ---
Addendum entered and electronically signed by Dennis Bailon MD 08/29/24 17:00:
Seen and examined by me independently in collaboration with the emergency medical tech.
Lab data and imaging data reviewed.
Addendum as below :
Resolved speech impairment. No new neurological symptoms. Seen by PT and OT today and cleared for home with outpatient therapies.
Medically stable for discharge. Appreciate neurology recommendations. Cardiology will be arranging outpatient Holter monitor for her.
Total time of discharge 32 minutes
Original Note:
Today's Communication/Plan
-
Consult caser up-arrange home physical therapy
Update family
Relieve constipation
Outpatient P PCSK9 inhibitor
Reach out to cardiology regarding the monitor
Assessment / Plan
Assessment / Plan
Impression
Patient is an 27-szmd-qbk-year-female with known history of coronary artery disease and diabetes, presented to emergency room for abnormal speech. In the emergency room stroke alert was called and patient had a CT and CTA performed which was
negative for any acute intracranial hemorrhage or large vessel occlusion. S/p TNK for acute CVA. Remained in ICU for 24 hours. Initially presented with aphasia and then she had left-sided neglect, neurology suspected embolic stroke of unknown
origin as she has no past history of A-fib. Cardiology consultation for BALDO and mild carotid disease was done. Patient due to have BALDO today. Last echo done in June, estimated ejection fraction 59%, mild MR, normal left and right
ventricular function.
Assessment/plan
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
CT brain without any acute intracranial abnormality, CTA head and neck with no evidence of large vessel occlusion with noted mild ICA disease bilaterally worse in left than the right
S/p TNK on 08/24
MRI brain without acute infarct
Neurology following, recommendations appreciated-continue aspirin for 6 months and then reconsider, outpatient PCSK9 inhibitor, Holter monitoring for A-fib
BALDO done-CONCLUSIONS
Normal biventricular size and systolic function without regional wall motion
abnormality. LVEF 60-65%.
Small PFO.
Atherosclerotic plaque in the aortic arch.
No intracardiac thrombus.
No significant valvular abnormalities.
Cardiology recs appreciated-BALDO done, small PFO unlikely to be the mechanism of her CVA and based on her age not a candidate for closure, continue aspirin, continue Zetia and arrange for PCSK9 inhibitor on outpatient basis, cardiology signed off
LDL goal less than 70
PT OT done-recommend home physical therapy
compliance program manager following
Awaiting physiatry consult
Other stable medical conditions
CAD status post PCI LAD May 2021
Hyperlipidemia
Statin intolerance with at least 2 statins
Hypertension
DM 2
Hypothyroidism
Obesity
Called patient's niece, Miladys Sawant and updated her about the discharge plan with home physical therapy. And also updated her about the treatment plan and outpatient follow-ups. All questions and concerns were answered
DVT prophylaxis
CODE STATUS
Anticipated Discharge: Within 24 hours
Subjective/Interval History
-
Date of Service: August 29, 2024
Denies any issues, speech normal, walking around without any issues
Constipation
Objective Data
-
Labs:
Laboratory Results
08/29/24
05:21
WBC 9.7
Hgb 13.6
Hct 42.7
Plt Count 232
Sodium 141
Potassium 3.9
Chloride 109 H
Carbon Dioxide 24
BUN 22 H
Creatinine 0.8
Glucose 156 H
Calcium 9.4
Vital Signs:
Vital Signs
Temp Pulse Resp BP Pulse Ox
97.8 F 66 17 136/65 96
08/29/24 10:57 08/29/24 10:57 08/29/24 10:57 08/29/24 10:57 08/29/24 10:57
I&O
08/28/24 08/29/24 08/30/24
06:59 06:59 06:59
Intake Total 1500 / 1500 1020 / 1020
Balance 1500 / 1500 1020 / 1020
Review of Systems
-
All other systems: Reviewed and negative
Physical Exam
-
General: Well Developed, No Apparent Distress and Other (Walking without difficulty, normal speech)
HEENT: Moist Mucous Membranes
Respiratory: Clear to Auscultation; Negative Wheezes, Rales or Rhonchi
Cardiac: Regular Rhythm and S1/S2
GI: Soft, Nontender, Nondistended and Normal Bowel Sounds
Musculoskeletal: No Clubbing, No Cyanosis and No Edema
Skin: Warm and Dry
Neuro: Awake, Oriented and Nonfocal/Grossly Intact
Psych: Calm
--- NOTE | 2024-08-29 12:41 | PTCARENOTE ---
Addendum entered by Shelly Alcantara RN 08/29/24 12:43:
Pt informed this RN she had a BM, refused medication.
Original Note:
Pt c/o constipation, made aware, new order provided, see MAR.
[2024-08-29 15:55] VITALS: BP 128/68
--- NOTE | 2024-08-29 16:05 | DOWNTIME ---
There was a [employer] Client Steam Crane Operator Downtime on 08/29/2024 from 1230 to 08/29/2024 at 1550. Downtime documentation of patient's care, including medication administrations, has been reconciled in the electronic record per guidelines. Refer to the
patient's paper chart under the miscellaneous tab to see printed paper medication records and downtime forms.
--- NOTE | 2024-08-29 16:14 | VNURNOTE ---
Home Health Liaison spoke with patient to discuss [facility] nurse/therapy, visits, schedule and homebound status. Patient is agreeable and understands that visits at home will be 2-3 x per week to assess and teach medical management. Patient is aware
that [facility] will contact them for start of care in 1-2 days after discharge from .
[facility] referral completed in [facility].
[2024-08-29 16:28] LABS: Glucose - Point of Care 176 mg/dl (70-99)
--- NOTE | 2024-08-29 16:38 | CON.MD ---
Consultation - Medical
-
Date of Consult:�08/29/2024
Referring Provider:�Dr. Dennis Bailon
Chief Complaint:�Stroke
�
History of Present Illness:�79-year-old right-handed female with PMH (as below) presented to [facility] on 08/24/24 with abnormal speech and recent headache. Stroke alert initiated. Initial CT of the head and neck without acute
intracranial abnormality, moderate atherosclerotic disease proximal left ICA. She received TNK with rapid improvement.
�
Past Medical History:�HTN, insulin-dependent diabetes mellitus, CAD, hypothyroidism, obesity
Procedure History:�Right total knee replacement, PCI 2021, cholecystectomy, hysterectomy, dilatation and curettage, right shoulder repair, perianal fistula surgery
Family History:�Early CAD (Her father had NM at 55 and 60 and of NM age 60. Mother had valve replacement in her 80s)
�
Social History:�
Functional Level Premorbidly:�Independent with all activities�
Functional Level Currently:�Independent level for self-care, modified independent with transfers and independent with ambulating 200 feet and 12 steps without device
�
Tobacco:�Former, quit 40 years ago
Alcohol:�Rare socially
Drug use:�Denies�
�
Lives with:�Alone
24-hour assistance available:�Possibly
Number of floors:�2
# steps to enter:�1
Potential First floor set up:�Yes, currently stays on first floor
Driving:�Yes
Occupation:�Retired
�
�
Allergies:�
Allergy/AdvReac Type Severity Reaction Status Date / Time
BOBBY Inhibitors Allergy COUGH Verified 08/24/24 17:57
adhesive tape (Adhesive Tape) Allergy skin very Verified 05/21/21 13:10
red and
sore
epinephrine (Epinephrine) AdvReac fast heart Verified 08/24/24 18:29
rate
during
dental
procedure
metformin AdvReac DIARRHEA Verified 08/24/24 18:29
oxycodone (From Percocet) AdvReac HYPERACTIVE Verified 08/24/24 18:29
Pyoomol-HDQ-VqF Reductase AdvReac MUSCLE Verified 08/24/24 18:29
Inhibitor CRAMPS
�
Review of Systems:�
Constitutional: (x) Normal _
Eye: (x) Normal _
Ear/Nose/Throat: (x) Normal _
Respiratory: (x) Normal _
Cardiovascular: (x) Normal _
Gastrointestinal: (x) Normal _
Genitourinary: (x) Normal _
Musculoskeletal: (x) Normal _
Integumentary: (x) Normal _
Neurologic: (x) abNormal _recent difficulty with speaking thought to be secondary to stroke which has resolved after getting medication
Psychiatric: (x) Normal _
Endocrine: (x) Normal _
Hematologic/Lymphatic: (x) Normal _
Allergic/Immunologic: (x) Normal _
�
Medications:�
Active Current Visit Medication List
Category Date Time Status
Acetaminophen [Tylenol] Med 08/24/24 18:26 Active
650 mg PO Q4HPRN PRN
Aspirin Low Dose EC [Aspir Low (Enteric Coated)] Med 08/25/24 18:00 Active
81 mg PO DAILY
Dextrose 50%-Water [Dextrose 50% Syringe] Med 08/24/24 18:26 Active
12.5 grams IV [id number] PRN
Ezetimibe [Zetia] Med 08/24/24 18:26 Active
10 mg PO DAILY
Flush (0.9% Sodium Chloride) [Flush (Nss)] Med 08/24/24 19:00 Active
See Dose Instructions IV PER PROTOCOL
Furosemide [Lasix] Med 08/25/24 08:00 Active
20 mg PO DAILY
Glucagon [GlucaGen] Med 08/24/24 18:26 Active
1 mg IM PRN PRN
Heparin Med 08/26/24 16:00 Active
5,000 units SC Q8
HydrALAZINE [Apresoline] Med 08/24/24 18:26 Active
5 mg IV Q6HPRN PRN
Insulin Aspart Corrective Mod [Novolog Flexpen-Moderate Med 08/25/24 16:30 Active
Resistance]
See Protocol SC AC
Latanoprost [Xalatan Ophthalmic Solution] Med 08/27/24 08:00 Active
See Dose Instructions BOTH EYES DAILY
Levothyroxine [Synthroid] Med 08/25/24 06:00 Active
125 mcg PO DAILY@0600
dorzolamide-timolol Med 08/27/24 10:45 Active
See Dose Instructions BOTH EYES BID
�
Vitals:�
Temp Pulse Resp BP Pulse Ox
98.2 F 72 16 128/68 96
08/29/24 15:55 08/29/24 15:55 08/29/24 15:55 08/29/24 15:55 08/29/24 15:55
Height 5 ft 4 in
Actual Weight 85.865 kg
Body Mass Index (BMI) 32.5
�
Physical Exam:�
General Appearance/Observation: Well-developed, well-nourished female in no apparent distress.�
Pain/Comfort Assessment: Denies�
Mood/Affect: Appropriate�
�
Integumentary/Operative Site:�No lesions noted during course of exam, does have IV right forearm
�
Eyes: Conjunctiva/Lids: normal��� Pupils: pupils equal round and reactive to light and Accommodation
Ears/Nose/Throat: oral mucosa moist, throat clear.������������ Lips/Teeth/Gums: normal
Neck: No muscle spasm or tenderness�
Cardiovascular: Heart: regular, no murmur�
Pulses: dorsalis pedis 2+ bilaterally�
Respiratory: Respiratory Effort/Chest Expansion: normal������ Auscultation: Clear to auscultation bilaterally
Gastrointestinal: abdomen not tender, no distension, normal abdominal bowel sounds
Genitourinary: No Rodriguez�
Rectal Exam: Deferred�
Extremities:�Edema: None�Cyanosis: None�Trophic�changes: None
�
Neurology Exam:
Orientation: Alert, Oriented to self, Time, Place�
Memory: Intact for recent medical concerns
Comprehension: Intact
Two step command: Intact
Cranial Nerves:
�� CNII:�Pupillary light reflex: Intact���
�� CN III, IV, : Extraocular muscles: Intact�
�� CN V:�Facial Sensation�at�Forehead: Intact,�Maxilla: Intact,�Mandible: Intact
�� CN VII:�Facial movement: Symmetric
�� CN VIII:�Hearing: Normal
�� CN IX/X:�Speech & swallow: Normal,�Position of Uvula: Midline
�� CN XI:�Shoulder shrug: Symmetric
�� CN XII:�Tongue protrusion: Midline
Sensory:
�� Light touch: Intact in bilateral upper and lower extremities
�
Reflexes:
�� Babinski: Down going bilaterally
�� Clonus: None
�� Virgil: Negative bilaterally�
Cerebellar: Dysmetria/Ataxia: None�
Musculoskeletal:Motor: (Manual muscle scale 0-5)�
Muscle SA EF WE EE FF FA HF KE DF EHL PF
Right� 5 5 5 5 5 5 4 5 5 5 5
Left 5 5 5 5 5 5 4 5 5 5 5
�
Tone: Normal in all extremities�
Range of Motion: Passively within normal limits in all extremities�
�
Lab Results
Laboratory Data
08/29/24 05:21
08/29/24 05:21
PT 13.3 Sec (11.4-14.6) 08/25/24 03:21
INR 0.98 08/25/24 03:21
APTT 33.8 Sec (23.4-35.0) 08/25/24 03:21
Total Bilirubin 0.6 mg/dl (0.2-1.3) 08/24/24 17:07
AST 27 U/L (14-36) 08/24/24 17:07
ALT 32 U/L (0-35) 08/24/24 17:07
Alkaline Phosphatase 66 U/L (38-126) 08/24/24 17:07
Total Protein 7.7 g/dl (6.3-8.2) 08/24/24 17:07
Albumin 4.6 g/dl (3.5-5.0) 08/24/24 17:07
�
Diagnostic Results:�as per HPI�
�
Assessment
79-year-old right-handed female with PMH (HTN, insulin-dependent diabetes mellitus, CAD, hypothyroidism, obesity�) presented to [facility] on 08/24/24 with abnormal speech and recent headache. Stroke alert initiated. Initial CT of the head
and neck without acute intracranial abnormality, moderate atherosclerotic disease proximal left ICA. She received TNK with rapid improvement.
�
Plan�
PM&R�PT/OT to increase independence with ADLs, improve balance, coordination, endurance, strength, mobility, community reintegration, decreased burden of care on others and family education.�
�
Presumed CVA: S/p TNK with resolution of symptoms. Secondary prophylaxis with aspirin, does not tolerate statins or Zetia with plan for PCSK9 inhibitor and blood pressure control
-Discussed following up with primary care provider and cardiology to make sure there are no other etiologies of stroke.
- Discussed importance of medication compliance to help prevent future strokes
-Reviewed possibility of repeat stroke in the future
-Discussed no driving until cleared by therapy.
Aphasia: Seen by speech with resolution of symptoms
HTN: Lasix 20 mg daily, monitor�
HLD: Intolerant of statins and Zetia. Plan for PCSK9 inhibitor with cardiology
Coronary artery disease�: Aspirin, plan for PCSK9, beta-tian�
DM II: Insulin sliding scale
Hypothyroidism: levothyroxine�
Bowel: No concerns off medications
Bladder: Voiding without concern
DVT Prophylaxis: Mechanical and heparin
Obesity: Continue to prevocational/rehabilitation counselor patient about diet adjustments to control obesity. Body habitus and increased force to move body and extremities causes further difficulty with functional tasks.�
Safety: Continue to reinforce assistance with all transfers.�
Code Status:� Full code
Dispo�(date/plan/equipment needs): Home with family care.� Social history reviewed.�
Discharge Destination:�Home�with home health and quick transition to outpatient therapies. Discussed needing clearance from outpatient OT and PCP to get back to driving
A total of 50 minutes were spent with the patient preparing for the evaluation, obtaining history, performing examination and evaluation, counseling, data review, case management, care coordination, borderer, and EMR documentation.
�
Thank you for allowing me to care for your patient. Please contact me with any questions or concerns.
--- NOTE | 2024-08-29 18:08 | W.DCSUMMARY ---
Discharge Summary
Discharge Data
Date of Admission: 08/24/24
Date of Discharge: 08/29/24
-
Pending Results: No
Hospital Course
Discharging Physician :
Dennis Bailon
Disposition :
Home with home care
Primary care physician :
Yariel Stephens
Principal Discharge diagnosis :
Acute CVA, s/p TNK, secondary to suspected embolism from unknown source
Chronic Discharge diagnosis :
CAD status post PCI LAD May 2021
Hyperlipidemia
Statin intolerance with at least 2 statins
Hypertension
DM 2
Hypothyroidism
Obesity
Hospital Course :
Patient is an 21-ikee-uws-year-female with known history of coronary artery disease and diabetes, presented to emergency room for abnormal speech. In the emergency room stroke alert was called and patient had a CT and CTA performed which was
negative for any acute intracranial hemorrhage or large vessel occlusion. Based on high suspicion of CVA and timing of presentation she received TNK. S/p TNK for acute CVA. Remained in ICU for 24 hours. Initially presented with aphasia and then
she had left-sided neglect, neurology suspected embolic stroke of unknown origin as she has no past history of A-fib. Cardiology consultation appreciated who did a transesophageal echocardiogram but there was no thrombus found. Cardiology placed a
monitor which they are going to follow-up on, 2 weeks later for any atrial fibrillation. Last echo done in June, estimated ejection fraction 59%, mild MR, normal left and right ventricular function. She had regular sinus rhythm throughout
her stay.
Important imaging findings :
CT brain perfusion 08/24/2024
FINDINGS: Intravenous contrast-enhanced CT brain perfusion is performed with resultant quantitative and qualitative maps.
There are small foci of T maxillary greater than 6 seconds. There is involvement of the posterior midline posterior fossa, the left posterior and superior cerebellum and the left occipital lobe, with measured volume of 11 cc.
There is no significant area with cerebral blood flow less than 30%.
Findings would suggest possible ischemia without infarction. However, this is a somewhat unusual distribution.
CT head without IV contrast 08/24/2024
IMPRESSION:
No evidence of acute intracranial abnormality.
Head/neck CTA 08/24/2024
IMPRESSION: No evidence for intracranial large vessel occlusion.
Aberrant medial course of the common carotid arteries, carotid bulbs, and proximal internal carotid arteries bilaterally.
Less than 25% diameter reduction of the right carotid bulb and proximal right ICA.
Moderate atherosclerotic disease involving the proximal left ICA with measured diameter reduction of 55%. This could represent a hemodynamically significant stenosis. Further evaluation with cerebrovascular ultrasound could be attempted, but may be
technically difficult because of the apparent medial course of the common carotid and proximal internal carotid arteries.
No significant narrowing of the vertebral or basilar arteries, with no evidence to suggest dissection.
Chest monitor 08/24/2024
IMPRESSION:
Lungs are hypoinflated with resultant crowding of bronchovascular markings.
Mild elevation of the left hemidiaphragm.
Brain MRI 08/25/2024
IMPRESSION: No evidence of acute intracranial abnormality. There is no evidence for acute to subacute infarction.
On sagittal sequence, there appears to be compression of the cervical spinal cord at C3-4 and possibly a degree of central canal stenosis. If there are symptoms referrable to the cervical spine and further imaging evaluation is desired, a full
dedicated MRI of the cervical spine could be performed.
Discharge Plan
-
Patient Disposition: Home with Home Care
Discharge Diagnosis/Procedures: Acute CVA, s/p TNK, secondary to suspected embolism from unknown source
Condition: Fair
Diet: Diabetic, Carb Controlled
Activity: As tolerated
Driving Restrictions: Not until seen by your Dr
Bathing Restrictions: OK to Shower
Other Services: PT and OT
Referrals:
Ingrid Diaz PA-C [Specified Professional Personl, Cardiology] - 09/21/24 3:20 pm
Referral Note: You have cardiology follow-up with Ingrid Diaz PA-C on September 21 at 3:20 PM in [address] [facility]. If you are unable to make this appointment please call [phone] to reschedule
Yariel Stephens MD [Family Provider, [facility]] - in less than 1 week
Additional Discharge Medication Instructions: Follow with cardiology regarding outpatient PCSK9 inhibitors
Prescriptions:
Continued
multivitamin 1 EACH tablet
1 ea PO DAILY
amlodipine 10 MG tablet
10 mg PO DAILY
levothyroxine 125 MCG tablet
125 mcg PO DAILY
furosemide 20 MG tablet
20 mg PO DAILY
omega 2-hiv-zqa-fish oil 1 EACH capsule
1 ea PO DAILY
insulin degludec [Tresiba U-100 Insulin] 100 UNIT/ML solution
25 unit SC DAILY
nateglinide 60 mg tablet
60 mg PO AC
docusate sodium 100 mg Capsule
100 mg PO HS
dorzolamide-timolol 22.3-6.8 mg/mL drops
1 drp BOTH EYES DAILY
magnesium 250 mg Tablet
250 mg PO DAILYPRN PRN (Reason: as directed)
ezetimibe 10 mg tablet
10 mg PO DAILY
Lumigan 0.01 % drops
1 drp BOTH EYES QPM
Fiber Fusion Daily 620 mg Capsule
620 cap PO DAILYPRN PRN (Reason: constipation)
aspirin 81 mg Tablet,Delayed Release (Dr/Ec)
81 mg PO DAILY 30 Days Qty: 30 1RF
Discharge Orders:
Discharge Patient (As Directed); Ordered 08/29/24
Ordered By: Robi Siu
Discharge Date and Time
Discharge Date/Time: 08/29/24 17:57
Print Language: SALVADOREAN
== END 2024-08-29 17:57 | disposition home health service (06) | DRG 62 ==
LOC: 3 WEST ACU 18:24
PROVIDERS: Nurse Practitioner Primary Care; Physician Assistant Medical; Student in an Organized Health Care Education/Training Program; ADMITTING PHYSICIAN Internal Medicine; ATTENDING PHYSICIAN Internal Medicine; CONSULT PHYSICIAN Internal Medicine; CONSULT PHYSICIAN Nuclear Medicine Nuclear Cardiology; CONSULT PHYSICIAN Physical Medicine & Rehabilitation; CONSULT PHYSICIAN Psychiatry & Neurology Clinical Neurophysiology; EMERGENCY PHYSICIAN Emergency Medicine; FAMILY PHYSICIAN Family Medicine
PROC: 3E03317 Introduction of Other Thrombolytic into Peripheral Vein, Percutaneous Approach (ICD-10-PCS; 2024-08-24)
PROC: B24BZZ4 Ultrasonography of Heart with Aorta, Transesophageal (ICD-10-PCS; 2024-08-28)
DX: I63.9 Cerebral infarction, unspecified (principal); I31.39 Other pericardial effusion (noninflammatory); R41.4 Neurologic neglect syndrome; Q21.12 Patent foramen ovale; I25.10 Atherosclerotic heart disease of native coronary artery without angina pectoris; E78.5 Hyperlipidemia, unspecified; Z98.61 Coronary angioplasty status; I10 Essential (primary) hypertension; E11.9 Type 2 diabetes mellitus without complications; E03.9 Hypothyroidism, unspecified; E66.9 Obesity, unspecified; Z68.32 Body mass index [BMI] 32.0-32.9, adult; K59.00 Constipation, unspecified; R47.01 Aphasia; I70.0 Atherosclerosis of aorta; I65.29 Occlusion and stenosis of unspecified carotid artery; R29.703 NIHSS score 3; R29.810 Facial weakness; R13.10 Dysphagia, unspecified; R47.02 Dysphasia; Z79.82 Long term (current) use of aspirin; Z79.890 Hormone replacement therapy; Z79.4 Long term (current) use of insulin; Z79.899 Other long term (current) drug therapy; Z82.49 Family history of ischemic heart disease and other diseases of the circulatory system; Z87.891 Personal history of nicotine dependence; Z90.710 Acquired absence of both cervix and uterus; Z91.048 Other nonmedicinal substance allergy status; Z96.651 Presence of right artificial knee joint
CPT/HCPCS: 0042T; 70450; 70496; 70498; 70551; 71045; 80048; 80053; 80061; 82962; 83036; 83735; 85025; 85027; 85610; 85730; 92523; 92610; 93005; 93312; 93320; 93325; 96374; 96375; 97116; 97129; 97163; 97167; 97530; 97535; 99285; J3101; Q9967

== ENCOUNTER 2024-09-18 07:39 | Outpatient (RCR) | payer OTHER, SELFPAY | END 2024-09-18 23:59 | disposition home or self-care (01) | LOC: ROT 07:39 | PROVIDERS: ATTENDING PHYSICIAN Physician Assistant Medical | DX: I69.320 Aphasia following cerebral infarction (principal); I69.354 Hemiplegia and hemiparesis following cerebral infarction affecting left non-dominant side; Z73.6 Limitation of activities due to disability | CPT/HCPCS: 97162; 97167; 97535; 97537 ==

== ENCOUNTER 2024-11-21 13:52 | Observation (INO) | payer OTHER, SELFPAY ==
[2024-11-21 08:26] VITALS: BMI 38.5
[2024-11-21 08:29] VITALS: BP 121/88
[2024-11-21 08:30] VITALS: BP 121/88
--- NOTE | 2024-11-21 09:02 | ED.CVA ---
History of Present Illness
General
Chief Complaint: CVA/TIA Symptoms
Time Seen by Provider: 11/21/24 08:40
Onset of Stroke Symptoms
Onset of symptoms known: Yes
Date of onset of symptoms: 11/20/24
History of Present Illness
History of Present Illness:
79-year-old female with history of CAD status post stenting, hypertension, hyperlipidemia, TIA presenting to the emergency department for concern of strokelike symptoms. 3 days ago after taking her Repatha for her high cholesterol, she started to
have a headache. Notes that she has had a headache after taking this medication in the past, however felt more severe. The following day the headache resolved. However, yesterday she was in the kitchen and holding a plate in her left hand and it
spontaneously dropped. She went to bed and this morning when she was using her phone with her right hand, felt like her hand was weak and dropped her phone in her bed. The weakness has since resolved. Patient notes in August 2024 she had a suspected
TIA. Patient admitted for strokelike symptoms, had TNK, however negative for CT imaging and MRI for acute infarction, negative BALDO for thrombus. Patient was started on aspirin. She was also started on the Repatha for high cholesterol. She denies
fever, chest pain, difficulty breathing, visual changes.
Phy Exam
Physical Exam
Physical Exam:
General: Well-appearing, no clinical signs of dehydration, nontoxic and in no acute distress
HEENT: protecting airway
Neck: appears supple
CV: Normal heart rate, regular rhythm
Resp: No accessory muscle use, no increased work of breathing, lungs clear to auscultation bilaterally
Abd: Soft and non-distended, no tenderness to palpation
Extremities: No deformities, no swelling
Neuro: alert, no focal neurologic deficit
: deferred
Rectal: deferred
Psych: Normal affect
Skin: Intact
Scores
NIH Stroke Score
Level of Consciousness: 0 - Alert
LOC Questions: 0-Answers both correctly
LOC Commands: 0-Performs both correctly
Best Horizontal Gaze: 0-Normal
Visual [place]: 0=Normal, no visual loss
Facial Palsy: 0=Normal, symmetrical
Motor - Right Arm: 0=No drift 10 seconds
Motor - Left Arm: 0=No drift 10 seconds
Motor - Right Le-No drift 5 seconds
Motor - Left Le-No drift 5 seconds
Limb Ataxia: 0-Absent
Sensation: 0-Normal
Best Language: 0-No aphasia
Dysarthria: 0-Normal
Extinction and Inattention: 0-No abnormality
NIH Total Score:: 0
Course
Orders/Labs/Results
Orders:
Orders
11/21/24 08:27
ECG [Electrocardiogram (*1)] Urgent
Reason for Study: TIA/Stroke
EKG- Treatment ONCE
11/21/24 08:58
CT Head W/o Iv Contrast Urgent
Comment:
Reason For Exam: suspect TIA, b/l arm weakness resolved
11/21/24 09:15
Basic Metabolic Panel Urgent
Cardiovascular Evaluation Urgent
Comment: ADD ON
Complete Blood Count/With Diff Urgent
Erythrocyte Sed Rate Urgent
Comment: ADD ON
Ferritin Urgent
Comment: ADD ON
Folate Urgent
Comment: ADD ON
PTT Urgent
Prothrombin Time Urgent
TSH Reflex To Free T4 Urgent
Comment: ADD ON
Vitamin B12 Urgent
Comment: ADD ON
11/21/24 10:07
NEUROLOGY CONSULT Urgent
Consulting Provider: Kelvin Mustafa
Was physician already notified: Yes
11/21/24 10:42
US Cerebrovascular Routine
Comment:
Reason For Exam: follow-up L ICA 55% sten, transient R hand weaknes
11/21/24 10:49
Prochlorperazine [Compazine] 10 mg PO Q6HPRN PRN
11/21/24 10:54
MR Brain Without Contrast Routine
Comment:
Reason For Exam: transient right and left hand weakness
Recent pill cam endoscopy?: No
11/21/24 10:55
Add On- LAB Routine
Tests Added?: folate, ferritin, TSH reflex, B12, ESR, lipid panel
11/21/24 12:38
Admit/Transfer Patient As Directed
Co-Sign Provider:
Level of Care: Observation services
Assign to:: Telemetry
Physician / Group: Hospitalist
Diagnosis: Right and Left arm weakness
Reason for Telemetry: CVA/TIA
Date to Stop Telemetry: 11/24/24
Time to Stop Telemetry: 11:00
Reason for Hospitalization: as above
PRN Pain Medication Management As Directed
May give lesser potent ordered pain med per pt: Yes
preference::
Protocol:: Medication orders for pain may be administered in a
manner that supports deferring to patient preference
when the pt is:
- Requesting an ordered lesser potent pain medication.
Least to most potent pain medications are defined
as: acetaminophen < NSAID < tramadol < opioids
(morphine, oxycodone, hydromorphone).
- Requesting a lesser dose of the same medication IF
ORDERED.
- Requesting a less intrusive route of administration
if both routes are prescribed by the provider (PO <
IV).
11/21/24 12:42
Code Status As Directed
Resuscitation Status: Do not resuscitate
Reached after discussion with pt or family/Healthcare POA: Yes
11/21/24 12:43
DNR Bracelet Application ONCE
11/21/24 12:50
Aspirin Chewable [Low Strength Aspirin] 162 mg PO NOW STA
11/21/24 12:54
Clopidogrel Bisulfate [Plavix] 75 mg PO NOW STA
11/21/24 14:36
Acetaminophen [Tylenol/Feverall] 650 mg RECTAL Q4HPRN PRN
Acetaminophen [Tylenol] 650 mg PO Q4HPRN PRN
Amlodipine [Norvasc] 10 mg PO DAILY
Dextrose 50%-Water [Dextrose 50% Syringe] 12.5 grams IV [id number] PRN
Glucagon [GlucaGen] 1 mg IM PRN PRN
11/21/24 14:36
Case Management Consult ONCE
Case Management Consult: Discharge Planning
Comment: stroke/tia
DIETARY IP CONSULT Routine
Reason for Consult: stroke/TIA
Psychiatric Nurse Practitioner Urgent
Activity As Directed
Activity Level: As Tolerated
Bedside Glucose Monitoring As Directed
Frequency: AC&HS
Additional Instructions:: Change to q6h if pt on TPN, tube feeding or not eating
NIH Stroke Scale As Directed
Directions: Per protocol
Comment: every shift and with any change in condition or mental status
Neurological Checks As Directed
Frequency: q4h
Additional Instructions:: q4h x 24h upon admission to the floor, then qshift & with any change in condition
and mental status
Patient Education As Directed
Type: Stroke education packet
Comment: provide to patient and family
Pneumatic Compression Sleeves As Directed
Type: Knee high
Swallow Screening CVA/TIA ONLY As Directed
Comment: NPO until swallowing screening completed
If patient FAILS swallow screening:: NPO, Speech Therapy consult, Aspiration Precautions
If patient PASSES swallow screening, diet:: 1800 eun/ 15 CHO Diabetic
Above diet order entered?: Yes- passed screening
Vital Signs As Directed
Frequency: Per unit guidelines
Ot Eval And Treat Routine
Pt Eval And Treat Routine
Activity Level: As Tolerated
DX Deep Vein Thrombosis Video Routine
11/21/24 15:31
VerifyNow Aspirin Routine
Pt on daily regimen OR been given initial dose of aspirin?: Yes
11/21/24 16:00
Amoxicillin [Amoxil] 500 mg PO TID
11/21/24 16:30
Insulin Aspart Corrective Low [Novolog Flexpen-Low Resistance] See Protocol SC AC
nateglinide 60 mg PO AC
11/21/24 22:00
Docusate Sodium [Colace] 100 mg PO HS
11/22/24 06:00
Basic Metabolic Panel IN AM
Complete Blood Count/No Diff IN AM
Hemoglobin A1c [Glycohemoglobin (HgbA1c)] IN AM
Levothyroxine [Synthroid] 125 mcg PO DAILY@0600
11/22/24 08:00
Aspirin Low Dose EC [Aspir Low (Enteric Coated)] 81 mg PO DAILY
Clopidogrel Bisulfate [Plavix] 75 mg PO DAILY
Ezetimibe [Zetia] 10 mg PO DAILY
Furosemide [Lasix] 20 mg PO DAILY
Multivitamin [Theragran] 1 tablet PO DAILY
11/24/24 11:00
DC Protocol for Telemetry ONCE
Abnormal Lab Results
11/21/24
09:15
MCH 26.9 L pg
(27.0-31.0)
MCHC 31.6 L g/dL
(33.0-37.0)
MPV 10.7 H fL
(7.4-10.4)
Absolute Neuts (auto) 7.0 H 10^3/uL
(1.4-6.5)
Lymphocytes % 19.3 L %
(20.5-51.1)
Chloride 110 H mmol/L
(98-107)
BUN 20 H mg/dl
(7-17)
Glucose 117 H mg/dl
(70-99)
Folate > 20.0 H ng/ml
(2.76-20)
11/21/24 09:15
11/21/24 09:15
Vital Signs
Initial and Last Documented VS:
Initial Vital Signs
BP
121/88
11/21/24 08:29
Last Documented Vital Signs
Temp Pulse Resp BP Pulse Ox
98.5 F 68 17 146/68 95
11/21/24 14:41 11/21/24 14:41 11/21/24 14:41 11/21/24 14:41 11/21/24 14:41
MDM/Problems Addressed
MDM/Problems Addressed:
79-year-old female with history of hypertension, hyperlipidemia, TIA presenting to the emergency department for concern of strokelike symptoms which have since resolved. Vital signs on arrival are normal.
On exam patient is resting comfortably, no acute distress or discomfort. Presently unremarkable cardiac, pulmonary, neurologic exam. Presently no focal neurologic deficits. NIH stroke scale is a 0. No indication for TNK given reassuring
examination, no significant deficits, timeframe of symptoms. Suspect possible TIA. EKG obtained on arrival, nonischemic. Given patient's prior history of TIA., Plan for laboratory analysis and CT imaging of the brain.
10:15 - Patient's lab work and CT is unremarkable. Did consult with neurology, will come and evaluate patient.
11:50 -Per neurology, recommending admission, ultimately feels could be migraine with aura, however stroke remains a consideration.
*Pulse Oximetry
SaO2: 97
Oxygen Mode of Delivery: Room air
Patient hypoxic: no
*EKG
Interpreted by ED Provider?: Yes
EKG Intrepretation Date: 11/21/24
EKG Intrepretation Time: 09:09
Interpretation: normal
Heart Rate: 61
Rate: normal
Rhythm: sinus
[place]: normal axis
Interval: normal interval
QRS Pattern: normal QRS
Ischemia: no ischemia
*Critical Care Note
Total Time (30-74mins, 75-104mins- exclusive of procedures): Not Applicable
ED Attending Note
-
Portions of this chart may have been created with voice recognition software.� Occasional wrong word or��sound alike� substitutions may have occurred due to the inherent limitations of voice recognition software.
Discharge Plan
Departure
Patient Disposition: Admit
Date of Disposition: 11/21/24
Time of Disposition: 11:58
Presentation/result/management discussed w/ accepting MD/DO: Hospitalist
Patient with high blood pressure during this ER visit?: No
Condition: Fair
Discharge Problem:
Stroke-like symptoms
Interventions
Interventions:
*Risk Screen - Suicide Last Done: 11/21/24 08:22
*General Assessment Last Done: 11/21/24 08:22
*Neglect/Abuse Screening Last Done: 11/21/24 10:47
*ED- Fall Risk Assessment Last Done: 11/21/24 10:47
*ED COVID-19 Vaccine History Last Done: 11/21/24 10:47
*Nursing Disposition Last Done: 11/21/24 14:31
ED- Pulmonary Assessment Last Done: 11/21/24 11:56
ED- Neurological Assessment Last Done: 11/21/24 11:56
ED- Cardiac Assessment Last Done: 11/21/24 11:56
ED Swallowing Screen Last Done: 11/21/24 11:56
Discharge Date and Time
Discharge Date/Time: 11/21/24 14:32
[2024-11-21 09:22] LABS: Hematocrit 44.0 % (37.0-47.0); Hemoglobin 13.9 g/dL (12.0-16.0); Mean Corp Hgb Conc. 31.6 g/dL (33.0-37.0); Mean Corpuscular Volume 85.1 fL (81.0-99.0); Nucleated Red Blood Cells % 0 %; Platelet Count 229 10^3/uL (130-400); Red Cell Dist. Width 13.3 % (11.5-14.5)
[2024-11-21 09:36] LABS: APTT 31.6 Sec (23.4-35.0); INR 1.03; PT 14.0 Sec (11.4-14.6)
[2024-11-21 09:46] LABS: Blood Urea Nitrogen 20 mg/dl (7-17); Calcium 9.4 mg/dl (8.4-10.2); Carbon Dioxide 22 mmol/L (22-30); Chloride 110 mmol/L (98-107); Estimated Creatinine Clearance 64 ml/min; Glucose 117 mg/dl (70-99); Sodium 140 mmol/L (135-145); eGFR > 60.00
[2024-11-21 10:00] VITALS: BP 134/73
--- NOTE | 2024-11-21 10:22 | CON.NEURO4 ---
Addendum entered and electronically signed by Kelvin Mustafa MD 11/21/24 13:49:
Studies reviewed.
I have personally examined the patient. I reviewed and agree with the CLEARING HAND's Note.
My addenda:
Awake, alert, interactive. No acute distress.
Speech intact.
Follows 2-step requests w/o difficulty. No tremor.
Extra-ocular movements grossly intact.
Facial movements full and symmetric. Hearing intact to normal conversational volume.
Normal UE movements bilaterally.
Neck: full ROM.
Chest: no dyspnea
Heart: no JVD
Ext: (-) Clubbing, (-) Cyanosis, (-) Edema
IMPRESSIONS/RECOMMENDATIONS:
Abrupt onset of bilateral hand sensation change and weakness happening independently during significant headache in a patient with recent evaluation for aphasia and headache. MRI imaging in August 2024 was not demonstrative of an abnormality
suggesting the possibility of a migraine syndrome such as migraine with aura despite the patient's advanced age.
Provide antiheadache resolution medication in the form of prochlorperazine
Recheck MRI of brain based on the patient's new symptoms despite the use of optimal therapies
Add clopidogrel again to the use of aspirin in case of acute stroke
Outpatient evaluation for sleep disruption
Check carotid ultrasound to determine if left internal carotid artery stenosis is more significant than previously suggested by CTA
Provide Ezetimibe as usual
Rehabilitation evaluations
D/W patient / family
All questions answered.
Will continue to follow patient.
Original Note:
Documented by User: Alondra Wen NP 11/21/24 12:44
Consultation - Neurology 4
-
CONSULTING PHYSICIAN: Kelvin Mustafa MD
REFERRING PHYSICIAN: ER/Dr. Lenz
DICTATED BY: WINSOME Kirkland
DATE/TIME OF REQUEST: 11/21/24
DATE/TIME OF CONSULTATION: 11/21/24
Reason for Consultation: Transient weakness, slurred speech, headache
History of Present Illness:
This is a 79-year-old right-handed female who has presented to the hospital with report of transient hand weakness and headache. Patient was previously evaluated by our inpatient Neurology service in August 2024 for acute onset aphasia and headache.
She received IV TNK at that time, symptoms entirely resolved. MRI Brain imaging was negative. CTA head/neck imaging was suggestive of L ICA 55% stenosis. She underwent BALDO and 2 week Holter monitoring per Cardiology, which was unremarkable. She was
started on aspirin 81mg daily and Repatha at that time due to statin intolerance. She reports that after taking her Repatha dose, she has been developing a headache. She had her third dose of Repatha five days ago on 11/16/24 and reports that the
following night she had a 7/10 headache across the top of her head on both sides causing her to not sleep well. The following day she was headache-free. Then yesterday on 11/20/24 she reports that her headache returned. She denies any
photo/phonophobia, nausea, or vomiting. Around 1800 she reports that her left hand 'went limp' and she dropped a plate. Her left hand 4th and 5th fingers felt numb. This resolved after 1.5 hours. Then this morning (11/21/24) she reports that she was
looking at her phone in bed when her right hand 'went limp' and she dropped her phone. After 20 minutes she regained strength in her hand. She notes that she still has the headache. Her daughter at bedside reports that when she spoke to her on the
phone earlier her speech sounded garbled and her neighbor spoke to her yesterday and reported the same thing. She denies any dizziness, vision changes, swallowing difficulty, and leg or face involvement. She has not missed any doses of her aspirin.
She does not that she was an aura ring and it has alerted her to pauses in her breathing during sleep and she notes that she snores.
Past Medical History: Stroke symptoms s/p TNK 08/2024 with negative MRI brain imaging, HTN, HLD, CAD, NIDDM, hypothyroidism, glaucoma, obesity, b/l hearing loss, GERD, chronic back pain
Surgical History: Cholecystectomy, hysterectomy, D&C, R meniscus repair, R shoulder repair, perianal fistula, cardiac cath, R TKR
Family History: Reviewed and noncontributory.
Social History: Former smoker. Denies alcohol and illicit drug use.
Allergies: Statins, BOBBY inhibitors, epinephrine, metformin, oxycodone, adhesive tape.
Home Medications: See below.
Review of Symptoms:
Patient denies any fever, chest pain, shortness of breath, GI or symptoms.
�Per the HPI.�All systems are reviewed negative except above.
Physical Exam:
The patient is afebrile, abdomen is nondistended, breathing is unlabored, skin is warm and dry, no edema.
NIH Stroke Scale:
I performed the NIH stroke scale on the patient on 11/21/24 at 1045. The patient scored 0 points on the NIH stroke scale assessment, which were assigned as follows: See below.
Neurologic Examination:
The patient is awake, alert and oriented x 3. She is able to follow commands and answer questions appropriately. There is no aphasia or dysarthria. On cranial nerve assessment, pupils are 3 mm bilateral, round and reactive to light and
accommodation. Visual moctezuma are full. Extraocular movements are intact. Facial sensations are intact and bilaterally symmetrical, there is no facial asymmetry. Hearing is diminished bilaterally to normal conversation volume. Tongue palate and uvula
are midline. Sternocleidomastoid strengths are full bilaterally. Motor strengths are 5/5 bilateral upper and lower extremities on medical research Midnight scale. There is no drift or involuntary movement noted. Deep tendon reflexes are 2+ bilateral
upper and lower extremities and Babinski is absent bilaterally. There was no extinction noted on double simultaneous stimulation. Coordination is intact by finger to nose bilaterally.
Lab Results: See below.
Neuro Imaging:
1. CT Head 11/21/24: No evidence of acute intracranial abnormality.
Differentials for the patient's presentation include:
1. Transient bilateral hand weakness and headache; uncertain etiology, possiblities include ulnar nerve palsy, migraine with aura, TIA, or small ischemic stroke.
2. Prior CTA head/neck suggestive of L ICA 55% stenosis.
Patient has the following risk factors for their symptoms: HTN, HLD, headache, age, NIDDM
IV Tenecteplase/IAT candidacy: Not a candidate due to NIHSS 0, outside of time window.
Recommendations:
-Continue aspirin 81mg daily. Add clopidogrel 75mg daily for 21 days.
-Provide prochlorperazine 10mg IV x1 now for headache.
-MRI brain noncontrast ordered.
-Carotid ultrasound ordered for follow-up of L ICA stenosis.
-Recommend an outpatient sleep study due to sleep disruption, breathing pauses, snoring.
-Provide patient with a stroke education packet.
-Checking blood work for metabolic abnormalities.
Discussed patient care with: Dr. Mustafa, the patient, patient's daughter
Vital Signs and Labs
-
Vital Signs and Labs:
Vital Signs
Temp Pulse Resp BP Pulse Ox
98.0 F 62 20 121/88 96
11/21/24 08:30 11/21/24 09:00 11/21/24 08:30 11/21/24 08:30 11/21/24 09:15
Lab Results
11/21/24 09:15
11/21/24 09:15
PT 14.0 Sec (11.4-14.6) 11/21/24 09:15
INR 1.03 11/21/24 09:15
APTT 31.6 Sec (23.4-35.0) 11/21/24 09:15
Sodium 140 mmol/L (135-145) 11/21/24 09:15
Potassium mmol/L (3.5-5.1) 11/21/24 09:15
BUN 20 mg/dl (7-17) H 11/21/24 09:15
Glucose 117 mg/dl (70-99) H 11/21/24 09:15
Calcium 9.4 mg/dl (8.4-10.2) 11/21/24 09:15
Medications
-
Home Medications
�Medication �Instructions �Recorded
amlodipine 10 mg tablet 10 mg PO DAILY 05/21/21
furosemide 20 mg tablet 20 mg PO DAILY 05/21/21
insulin degludec 100 unit/mL 25 unit SC DAILY 05/21/21
subcutaneous solution (Tresiba
U-100 Insulin)
levothyroxine 125 mcg tablet 125 mcg PO DAILY 05/21/21
multivitamin 1 ea PO DAILY 05/21/21
omega 7-vkh-lkr-fish oil 60 mg-90 1 ea PO DAILY 05/21/21
mg-500 mg capsule
bimatoprost 0.01 % eye drops 1 drp BOTH EYES QPM 08/24/24
(Lumigan)
docusate sodium 100 mg capsule 100 mg PO HS 08/24/24
dorzolamide 22.3 mg-timolol 6.8 1 drp BOTH EYES DAILY 08/24/24
mg/mL eye drops
ezetimibe 10 mg tablet 10 mg PO DAILY 08/24/24
magnesium 250 mg tablet 250 mg PO DAILYPRN PRN as directed 08/24/24
nateglinide 60 mg tablet 60 mg PO AC 08/24/24
psyllium [id number]-[id number] gum-pectin 620 cap PO DAILYPRN PRN 08/24/24
620 mg capsule (Fiber Fusion Daily) constipation
aspirin 81 mg tablet,delayed 81 mg PO DAILY 30 days #30 tabs 08/29/24
release
NIH Stroke Score
Subsequent NIH Scale
Date of Subsequent NIH Scale: 11/21/24
Time of Subsequent NIH Scale: 10:45
NIH Stroke Score
Level of Consciousness: 0 - Alert
LOC Questions: 0-Answers both correctly
LOC Commands: 0-Performs both correctly
Best Horizontal Gaze: 0-Normal
Visual [place]: 0=Normal, no visual loss
Facial Palsy: 0=Normal, symmetrical
Motor - Right Arm: 0=No drift 10 seconds
Motor - Left Arm: 0=No drift 10 seconds
Motor - Right Le-No drift 5 seconds
Motor - Left Le-No drift 5 seconds
Limb Ataxia: 0-Absent
Sensation: 0-Normal
Best Language: 0-No aphasia
Dysarthria: 0-Normal
Extinction and Inattention: 0-No abnormality
NIH Total Score:: 0
Modified Eleonora (mRS) Score
Modified Eleonora Scale (mRS): No symptoms
Score: 0
Alteplase Contraindication
Inclusion and Exclusion criteria reviewed: Yes

Documented by User: Kelvin Mustafa MD 11/21/24 13:31
NIH Stroke Score
NIH Stroke Score
NIH Total Score:: 0
Modified [place] (mRS) Score
Score: 0
[2024-11-21 11:22] LABS: HDL Cholesterol 41 mg/dl; LDL Cholesterol, Calculated 49 mg/dl; Very Low Density Lipoprotein 25 mg/dl (0-30)
--- NOTE | 2024-11-21 12:01 | W.PN.UPDATE ---
Update Note
Progress Note Update
This is an addendum to H&P written by Resident Physician Dr. Eliud Infante
I saw and examined the patient.
The resident physician's note was reviewed and I agree with the note.
Comment:
Ms. Mary Stephens is a 79 yo woman with hx CAD s/p PCI 05/26, HLD (recently started on Repatha), DM2, Hypothyroidism, obesity, acute CVA 08/26 s/p TNK presents to the ER with left hand followed by right hand weakness.
Patient presented with aphasia in August 2024 admitted for acute CVA s/p TKA s/p BALDO without thrombus discharged with hospital monitor. No atrial fibrillation seen, atach seen.
Triage VS: T 98, P 75, BP 121/88, SpO2 99%
On exam patient is AAO x 3, conversant without expressive aphasia, 5/5 strength upper and lower extremities; EOMI, no facial asymmetry
LABS: WBC 10, Hg 13.9, PLT 229, Na 140, Cl 110, Cr 0.7, Glucose 117
CT HEAD
IMPRESSION:
No evidence of acute intracranial abnormality.
Focal left then right upper extremity Weakness, concern for TIA versus complex migraine (preceded by headache)
Hx CVA s/p TNK 08/2024
-admit to telemetry
-CT head results above
-follow up Carotid US results
-MRI
-patient did not take Aspirin this morning, will give a dose now
-Plavix 75mg PO QD x 21 days
-appreciate Neurology eval
-neuro checks
-patient wears an apple watch, discussed a Linq monitor with her Lean Engineer, I texted Dr. Overton to update on patient's admission
-F/U A1c and lipid panel
HLD
-patient received first Repatha injection 5 days ago
CAD s/p PCI 05/26
-ROLLS BAKER aspirin
DM II
-patient is on Lantus 22 units daily at home, will start with 12 units daily and adjust as needed
-ROLLS BAKER nateglinide
-ISS low
-F/U A1c
Hypothyroidism
-ROLLS BAKER Synthroid
DVT PPx SCD
DNR
--- NOTE | 2024-11-21 12:14 | HPS.HSE ---
Family Physician
-
Family Physician: Laverne Garcia
Chief Complaint
-
Bilateral hand weakness
History of Present Illness
This is an 79-year-old female past medical history of essential hypertension, T2DM, GERD, bilateral hearing loss, hyperlipidemia who presented to ED complaining of bilateral upper extremity weakness and concern for strokelike symptoms. The
patient reports yesterday night, a plate dropped from her left hand due to weakness. Weakness resolved after a few minutes. Then this morning, she experienced weakness in her right hand after dropping her phone. She reports weakness improved
within a few minutes similarly to the left hand. Patient states prior to this event, she was fine with no acute symptoms. She denied episode of dizziness, denied loss of consciousness. Patient reports she was recently started on Repatha 3 days
ago. She experienced an episode of headache after medication use, but headache resolved within 24 hours.
At bedside today, she denies acute complaints. She reports her symptoms have resolved. She denies chest pain, denies shortness of breath, denies palpitation. She denies lower extremity weakness at any point
Pertaining to her history, she was recently admitted here back in August 2024 for concerns for CVA, at which time she got TNK back pain. At that time she was started on aspirin alone and continued on aspirin 81 mg on discharge. Patient reports she
continues aspirin at home, but did not take a dose today. Patient reports she recently had a dental procedure 1 week ago. She was started on amoxicillin 11/16 postprocedure to complete for 7 days.
Upon presentation to the ED, vitals with blood pressure 121/88, pulse 68, temperature 98.0, respiratory 20, O2 sat 97% on room air.
Medical History
Past Medical History
Past Medical History: Reports HTN, Hypercholesterolemia, Hypothyroidism and IDDM
Past Surgical History: Reports Other
Social History
Tobacco: Non-smoker
Alcohol: None
Drug: None
Family History
Family History: Not pertinent
Allergies / Home Medications
Allergies reflects when Allergies were last updated in [facility].
Home Medications with original date entered in [facility]
Allergy/Medication List:
Allergies
Allergy/AdvReac Type Severity Reaction Status Date / Time
BOBBY Inhibitors Allergy COUGH Verified 11/21/24 08:24
adhesive tape (Adhesive Tape) Allergy skin very Verified 11/21/24 08:24
red and
sore
epinephrine (Epinephrine) AdvReac fast heart Verified 11/21/24 08:24
rate
during
dental
procedure
metformin AdvReac DIARRHEA Verified 11/21/24 08:24
oxycodone (From Percocet) AdvReac HYPERACTIVE Verified 11/21/24 08:24
Pkwyctw-AGB-DmC Reductase AdvReac MUSCLE Verified 11/21/24 08:24
Inhibitor CRAMPS
Home Medications
amlodipine 10 mg tablet 10 mg PO DAILY 05/21/21
furosemide 20 mg tablet 20 mg PO DAILY 05/21/21
levothyroxine 125 mcg tablet 125 mcg PO DAILY 05/21/21
omega 1-dko-oex-fish oil 60 mg-90 mg-500 mg capsule 1 cap PO DAILY 05/21/21
bimatoprost 0.01 % eye drops (Lumigan) 1 drp BOTH EYES QPM 08/24/24
docusate sodium 100 mg capsule 100 mg PO HS 08/24/24
dorzolamide 22.3 mg-timolol 6.8 mg/mL eye drops 1 drp BOTH EYES BID 08/24/24
ezetimibe 10 mg tablet 10 mg PO DAILY 08/24/24
nateglinide 60 mg tablet 60 mg PO AC 08/24/24
aspirin 81 mg tablet,delayed release 81 mg PO DAILY 30 days #30 tabs 08/29/24
amoxicillin 500 mg capsule 500 mg PO TID 11/21/24
evolocumab 140 mg/mL subcutaneous pen injector (Repatha SureClick) 140 mg SC Q2W 11/21/24
insulin glargine 100 unit/mL (3 mL) subcutaneous pen (Lantus Solostar U-100 Insulin) 22 unit SC DAILY 11/21/24
therapeutic multivitamin 1 tab PO DAILY 11/21/24
Review of Systems
-
A 12 point ROS was completed and negative except as noted: Yes
Constitutional: Reports Other (All review of systems obtained and negative except as documented)
Physical Exam
Vital Signs
Vital Signs
Temp Pulse Resp BP Pulse Ox
98.0 F 65 16 134/73 97
11/21/24 08:30 11/21/24 11:48 11/21/24 12:00 11/21/24 10:00 11/21/24 11:56
Physical Exam
General: Well Developed, Well Nourished and No Apparent Distress
HEENT: NormoCephalic and Anicteric
Respiratory: Clear
Cardiac: S1/S2 and Regular Rhythm
GI: Soft, Non Tender, Non Distended and Normal Bowel Sounds
Musculoskeletal: No Edema and Other (5/5 muscular strength bilateral upper and lower extremity)
Neuro: Awake, Alert, Oriented and AO x 3
Psych: Calm
Laboratory Results
-
11/21/24 09:15
11/21/24 09:15
Laboratory Results
PT 14.0 Sec (11.4-14.6) 11/21/24 09:15
INR 1.03 11/21/24 09:15
APTT 31.6 Sec (23.4-35.0) 11/21/24 09:15
Total Bilirubin Cancelled 11/21/24 09:15
AST Cancelled 11/21/24 09:15
ALT Cancelled 11/21/24 09:15
Alkaline Phosphatase Cancelled 11/21/24 09:15
Impression/Plan
-
Assessment/plan
#Transient bilateral upper extremity weakness concern for TIA
-CT head- No acute intracranial abnormality
-Neurochecks q4
-Continue aspirin 81 mg, add clopidogrel 75mg daily for 21 days
-Check lipid panel, update A1c
-Neurology consulted
-Check brain MRI
-Carotid Ultrasound
#Essential hypertension
-Continue amlodipine, Lasix
#CAD s/p PCI in 2021
-Denies acute chest pain
-Continue aspirin, Zetia
#T2DM
-Continue nateglinide
-Continue Home Lantus. Will start 12 units and adjust as needed
-Coverage with SSI, update A1c
#Hypothyroidism
-Continue levothyroxine
#Dental post-procedure prophylaxis
-Continue outpatient Amoxicillin TID (D5/7)
#Hyperlipidemia
-s/p First Repatha injection 5 days ago
-Continue zetia
CODE STATUS DNR
DVT prophylaxis SCDs
[2024-11-21 12:38] LABS: Ferritin 102.0 ng/ml (11.1-264.0)
--- NOTE | 2024-11-21 12:45 | VASLABRESULT ---
Preliminary VascularLab Result
- -
A preliminary carotid ultrasound report was given to Alondra Wen. There is <50% bilateral carotid artery stenosis. No significant stenosis seen. per Dr. Rios
[2024-11-21 13:09] LABS: Folate > 20.0 ng/ml (2.76-20); Vitamin B12 471 pg/ml (239-931)
[2024-11-21] MEDS: LOW STRENGTH ASPIRIN 162 MG PO (13:58)
[2024-11-21] MEDS: PLAVIX 75 MG PO (13:58)
[2024-11-21 14:41] VITALS: BP 146/68
[2024-11-21 14:42] VITALS: BMI 38.0
[2024-11-21] MEDS: NORVASC 10 MG PO (15:48)
[2024-11-21] MEDS: AMOXIL 500 MG PO ×2 (15:48→21:51)
[2024-11-21 16:10] LABS: Glucose - Point of Care 192 mg/dl (70-99)
[2024-11-21 16:34] LABS: VerifyNow Aspirin 450 ARU
[2024-11-21 17:40] LABS: Glucose - Point of Care 128 mg/dl (70-99)
[2024-11-21 19:55] VITALS: BP 138/64
[2024-11-21 21:51] LABS: Glucose - Point of Care 141 mg/dl (70-99)
[2024-11-21] MEDS: COLACE 100 MG PO (21:51)
[2024-11-21] MEDS: XALATAN OPHTHALMIC SOLUTION 1 DROP BOTH EYES (22:08)
[2024-11-21] MEDS: TRUSOPT 2% OPHTHALMIC SOLUTION 1 DROP OPHTH (22:08)
[2024-11-21] MEDS: TIMOPTIC 0.5% OPHTHALMIC SOLUTION OPHTH ×2 (22:08→23:03)
[2024-11-21 23:28] VITALS: BP 130/73
[2024-11-22 03:57] VITALS: BP 127/68
[2024-11-22 06:24] LABS: Hematocrit 43.3 % (37.0-47.0); Hemoglobin 13.8 g/dL (12.0-16.0); Mean Corp Hgb Conc. 31.9 g/dL (33.0-37.0); Mean Corpuscular Volume 84.4 fL (81.0-99.0); Platelet Count 218 10^3/uL (130-400); Red Cell Dist. Width 13.3 % (11.5-14.5)
[2024-11-22] MEDS: SYNTHROID 125 MCG PO (06:32)
[2024-11-22 06:49] LABS: Blood Urea Nitrogen 17 mg/dl (7-17); Calcium 10.0 mg/dl (8.4-10.2); Carbon Dioxide 21 mmol/L (22-30); Chloride 112 mmol/L (98-107); Estimated Creatinine Clearance 71 ml/min; Glucose 149 mg/dl (70-99); Potassium 4.1 mmol/L (3.5-5.1); Sodium 141 mmol/L (135-145); eGFR > 60.00
--- NOTE | 2024-11-22 07:32 | W.PN.HOSP.TC ---
Today's Communication/Plan
-
Patient medically stable for discharge. Will continue 21 days of Plavix.
Recommend outpatient neurology follow-up and outpatient sleep study. Patient agreeable to plan.
Assessment / Plan
Assessment / Plan
79-year-old female with a past medical history of essential hypertension, type 2 diabetes mellitus, GERD, hyperlipidemia and bilateral hearing loss who presented to the ED with bilateral upper extremity weakness and concern for stroke-like symptoms.
On 11/20/2024, patient dropped a plate from her left hand due to sudden onset weakness. She states it resolved after a few minutes, but experienced another episode 11/21/2024 morning where she dropped her phone. This episode also resolved within a
few minutes. At presentation, there were no acute symptoms, but she did endorse a headache that she attributed to recent Repatha use 3 days ago. She denied dizziness, loss of consciousness, chest pain, shortness of breath, palpitations or lower
extremity weakness. Patient was admitted in August 2024 for concerns of CVA, at which time she got TNK. Patient was started on aspirin alone and continued on aspirin 81 Mg on discharge. Patient has been compliant to the medication. She had a dental
procedure 1 week ago, and was started on amoxicillin 11/16/2024 postprocedure to complete for [address] head 11/21/2024: No evidence of acute intracranial abnormality
Carotid ultrasound 11/21/2024: Calcified plaque bilateral proximal internal carotid arteries. Patient velocity measures, any internal carotid artery stenosis is less than 50% bilaterally. Anterograde flow bilateral vertebral arteries.
MRI brain 11/21/2024: No acute infarct. Stable mild to moderate chronic microvascular white matter ischemic change, and mild to moderate age-appropriate atrophy. As before, on sagittal T1 there is a cervical central canal narrowing from C2-C3
through C6-7. Further imaging evaluation may be considered with dedicated nonemergent MRI examination of the cervical spine.
Assessment/plan:
#Transient bilateral upper extremity weakness- likely dude to complex migraine
CT head as above
MRI brain as above
Carotid ultrasound as above
�Continue aspirin 81 Mg, clopidogrel 75 Mg daily for 21 days
�Neurology consulted: Symptoms likely dude to complex migraine. Recommend outpatient follow-up with them, and outpatient sleep study.
�Lipid profile within normal limits
#Essential hypertension
� Continue amlodipine and Lasix
#Coronary artery disease status post PCI in 2021
� Continue aspirin and Zetia
#Type 2 diabetes mellitus
�Continue nateglinide, home Lantus (started at 20 units and will adjust as needed)
�Continue SSI
�HbA1c pending
#Postprocedure prophylaxis for dental procedure
�Continue amoxicillin thrice daily-day 6
#Hyperlipidemia
�Patient received first Repatha injection 5 days ago
�Continue Zetia
DVT prophylaxis: SCDs
CODE STATUS: DNR
Anticipated Discharge: Today
Subjective/Interval History
-
Date of Service: November 22, 2024
On evaluation of patient today, patient states she has no symptoms currently. She feels well and is ready to go home.
Objective Data
-
Labs:
Laboratory Results
11/22/24
06:08
WBC 10.0
Hgb 13.8
Hct 43.3
Plt Count 218
Sodium 141
Potassium 4.1
Chloride 112 H
Carbon Dioxide 21 L
BUN 17
Creatinine 0.6
Glucose 149 H
Calcium 10.0
Vital Signs:
Vital Signs
Temp Pulse Resp BP Pulse Ox
98.1 F 68 18 127/68 96
11/22/24 03:57 11/22/24 03:57 11/22/24 03:57 11/22/24 03:57 11/22/24 03:57
I&O
11/21/24 11/22/24 11/23/24
06:59 06:59 06:59
Intake Total 240 / 240
Balance 240 / 240
Review of Systems
-
History Source: Patient
Constitutional: Reports No Symptoms
EENT: Reports No Symptoms Reported
Respiratory: Reports No Symptoms
Cardiac: Reports No Symptoms
Abdomen/GI: Reports No Symptoms
Breast: Reports No Symptoms
Genitourinary: Reports No Symptoms
Musculoskeletal: Reports No Symptoms
Skin: Reports No Symptoms
Neuro: Reports No Symptoms
Endocrine: Reports No Symptoms
Hematologic / Lymphatic: Reports No Symptoms
Physical Exam
-
General: Well Developed, Well Nourished, No Apparent Distress, Comfortable, Conversant and Obese
HEENT: Normocephalic, Atraumatic, Moist Mucous Membranes and Anicteric
Respiratory: Clear to Auscultation
Cardiac: Regular Rhythm and S1/S2
GI: Soft, Nontender, Nondistended, Normal Bowel Sounds and No Hepatosplenomegaly
Musculoskeletal: No Clubbing, No Cyanosis and No Edema
Neuro: Awake, AO x 3 and No Motor Deficits
Psych: Calm
Data Reviewed
-
CT Scan: Report Reviewed by me and Discussed with Physician
Ultrasound: Report Reviewed by me and Discussed with Physician
MRI: Report Reviewed by me and Discussed with Physician
Labs: Labs Reviewed by me and Discussed with Physician
Old Records: Reviewed
[2024-11-22 07:35] VITALS: BP 142/74
[2024-11-22 07:38] LABS: Glucose - Point of Care 129 mg/dl (70-99)
[2024-11-22] MEDS: AMOXIL 500 MG PO (07:54)
[2024-11-22] MEDS: PLAVIX 75 MG PO (07:54)
[2024-11-22] MEDS: ASPIR LOW (ENTERIC COATED) 81 MG PO (07:54)
[2024-11-22] MEDS: LANTUS 0.12 UNITS SC (07:54)
[2024-11-22] MEDS: ZETIA 10 MG PO (07:54)
[2024-11-22] MEDS: THERAGRAN 1 TABLET PO (07:54)
[2024-11-22] MEDS: NORVASC 10 MG PO (07:55)
[2024-11-22] MEDS: TIMOPTIC 0.5% OPHTHALMIC SOLUTION 1 DROP OPHTH (07:55)
[2024-11-22] MEDS: TRUSOPT 2% OPHTHALMIC SOLUTION 1 DROP OPHTH (07:55)
[2024-11-22] MEDS: LASIX 20 MG PO (07:59)
--- NOTE | 2024-11-22 08:21 | W.PN.NEURO.1 ---
Today's Communication / Plan
-
Provide anti�headache resolution medication in the form of prochlorperazine 10 mg by mouth as needed, may repeat times 1:01 hour
Add clopidogrel again to the use of aspirin in case of recurrent TIA which is unlikely for total of 21 days, then aspirin alone
Outpatient evaluation for sleep disruption, most likely due to sleep apnea
Provide Ezetimibe as usuall as well as Evolocumab
Neuro Assessment/Plan
Assessment
Repeat MRI of brain was unremarkable
Abrupt onset of bilateral hand sensation change and weakness happening independently during significant headache in a patient with recent evaluation for aphasia and headache. MRI imaging in August 2024 was not demonstrative of an abnormality
suggesting the possibility of a migraine syndrome such as migraine with aura despite the patient's advanced age.
Plan
Provide anti�headache resolution medication in the form of prochlorperazine 10 mg by mouth as needed, may repeat times 1:01 hour
Add clopidogrel again to the use of aspirin in case of recurrent TIA which is unlikely for total of 21 days, then aspirin alone
Outpatient evaluation for sleep disruption, most likely due to sleep apnea
Provide Ezetimibe as usuall as well as Evolocumab
Patient should follow-up in our office or with her usual outpatient neurologist.
Subjective/Objective
Subjective Data
Date of Service: November 22, 2024
Objective Data
Vital Signs
Temp Pulse Resp BP Pulse Ox
36.7 C 68 18 142/74 96
11/22/24 03:57 11/22/24 07:55 11/22/24 03:57 11/22/24 07:55 11/22/24 03:57
Lab Results
11/22/24 06:08
11/22/24 06:08
PT 14.0 Sec (11.4-14.6) 11/21/24 09:15
INR 1.03 11/21/24 09:15
APTT 31.6 Sec (23.4-35.0) 11/21/24 09:15
Sodium 141 mmol/L (135-145) 11/22/24 06:08
Potassium 4.1 mmol/L (3.5-5.1) 11/22/24 06:08
BUN 17 mg/dl (7-17) 11/22/24 06:08
Glucose 149 mg/dl (70-99) H 11/22/24 06:08
Calcium 10.0 mg/dl (8.4-10.2) 11/22/24 06:08
LDL Cholesterol, Calc 49 mg/dl 11/21/24 09:15
Vitamin B12 471 pg/ml (239-931) 11/21/24 09:15
Patient Allergies
BOBBY Inhibitors Allergy (Verified 11/21/24 08:24)
COUGH
adhesive tape (Adhesive Tape) Allergy (Verified 11/21/24 08:24)
skin very red and sore
epinephrine (Epinephrine) Adverse Reaction (Verified 11/21/24 08:24)
fast heart rate during dental procedure
metformin Adverse Reaction (Verified 11/21/24 08:24)
DIARRHEA
oxycodone (From Percocet) Adverse Reaction (Verified 11/21/24 08:24)
HYPERACTIVE
[id number] Reductase Inhibitor Adverse Reaction (Verified 11/21/24 08:24)
MUSCLE CRAMPS
Past History
Past History
ED Past Medical History: Other (Migraine with aura)
Medications
-
Medications:
Generic Name Dose Route Start Last Admin
Trade Name Freq PRN Reason Stop Dose Admin
Acetaminophen 650 mg 11/21/24 14:36
Acetaminophen 650 Mg Rectal Suppository RECTAL 12/19/24 14:35
Q4HPRN PRN
CRABTREE, mild pain, or temp >100.4F
Acetaminophen 650 mg 11/21/24 14:36
Acetaminophen 325 Mg Tablet PO 12/19/24 14:35
Q4HPRN PRN
CRABTREE, mild pain, or temp >100.4F
Amlodipine Besylate 10 mg 11/21/24 14:36 11/22/24 07:55
Amlodipine 10 Mg Tablet PO 12/19/24 14:35 10 mg
DAILY MOJGAN Administration
Amoxicillin 500 mg 11/21/24 16:00 11/22/24 07:54
Amoxicillin 500 Mg Capsule PO 11/22/24 22:01 500 mg
TID MOJGAN Administration
Aspirin 81 mg 11/22/24 08:00 11/22/24 07:54
Aspirin 81 Mg (Enteric Coated) Tablet PO 12/20/24 07:59 81 mg
DAILY MOJGAN Administration
Clopidogrel Bisulfate 75 mg 11/22/24 08:00 11/22/24 07:54
Clopidogrel 75 Mg Tablet PO 12/11/24 08:01 75 mg
DAILY MOJGAN Administration
Dextrose 12.5 grams 11/21/24 14:36
Dextrose 50% (0.5 Grams/Ml) 50 Ml Syringe IV 12/19/24 14:35
[id number] PRN
hypoglycemia
Protocol
Docusate Sodium 100 mg 11/21/24 22:00 11/21/24 21:51
Docusate Sodium 100 Mg Capsule PO 12/19/24 21:59 100 mg
HS MOJGAN Administration
Dorzolamide HCl 0 drop 11/21/24 20:00 11/22/24 07:55
Dorzolamide 2% (Ophthalmic Solution) 10 Ml Bottle OPHTH 12/19/24 19:59 1 drop
BID MOJGAN Administration
Ezetimibe 10 mg 11/22/24 08:00 11/22/24 07:54
Ezetimibe (Zetia) 10 Mg Tablet PO 12/20/24 07:59 10 mg
DAILY MOJGAN Administration
Furosemide 20 mg 11/22/24 08:00 11/22/24 07:59
Furosemide 20 Mg Tablet PO 12/20/24 07:59 20 mg
DAILY MOJGAN Administration
Glucagon 1 mg 11/21/24 14:36
Glucagon 1 Mg Vial IM 12/19/24 14:35
PRN PRN
hypoglycemia
Protocol
Insulin Glargine 12 units/ 0.12 mls @ 0 mls/hr 11/22/24 08:00 11/22/24 07:54
Device SC 12/20/24 07:59 0.12 mls
DAILY MOJGAN Administration
As Directed
Insulin Aspart 0 units 11/21/24 16:30 11/22/24 07:51
Insulin Aspart Low Resistance 300 Units/3 Ml Pen.Injctr SC 12/19/24 16:29 Not Given
AC MOJGAN
Protocol
Latanoprost 0 drop 11/21/24 22:00 11/21/24 22:08
Latanoprost 0.005% (Ophthalmic Solution) 2.5 Ml Bottle BOTH EYES 12/19/24 21:59 1 drop
HS MOJGAN Administration
Levothyroxine Sodium 125 mcg 11/22/24 06:00 11/22/24 06:32
Levothyroxine 125 Mcg Tablet PO 12/20/24 05:59 125 mcg
DAILY@0600 MOJGAN Administration
Non-Formulary Medication 60 mg 11/21/24 16:30
Nateglinide PO 12/19/24 16:29
AC MOJGAN
Prochlorperazine Maleate 10 mg 11/21/24 10:49
Prochlorperazine 10 Mg Tablet PO 12/19/24 10:48
Q6HPRN PRN
headache
Timolol Maleate 0 drop 11/21/24 20:00 11/22/24 07:55
Timolol 0.5% (Ophthalmic Solution) Bottle OPHTH 12/19/24 19:59 1 drop
BID MOJGAN Administration
[2024-11-22 08:46] LABS: Glycohemoglobin (HgbA1c) 6.5 % (4.0-5.6)
--- NOTE | 2024-11-22 09:25 | W.PN.UPDATE ---
Update Note
Progress Note Update
I saw and evaluated the patient. I reviewed the resident�s note and agree with findings and plan as documented in the resident�s note.
No new complaints.
Gen: NAD, AAOx3.
Eyes: EOMI, PERRLA, no scleral icterus.
Neck: supple.
CV: RRR, +S1/S2, no m/r/g.
Resp: CTAB, no rales, wheezes, or rhonchi.
Abd: +BS, soft, NT, ND
Skin: No rashes.
Neuro: CN 2-12 intact, non-focal.
Psych: Normal mood and affect.
Lab Results
11/21/24 11/21/24 11/21/24
09:15 15:31 16:08
WBC 10.0
RBC 5.17
Hgb 13.9
Hct 44.0
MCV 85.1
MCH 26.9 L
MCHC 31.6 L
RDW 13.3
Plt Count 229
MPV 10.7 H
Abs Immat Gran (auto) 0.0
Absolute Neuts (auto) 7.0 H
Absolute Lymphs (auto) 1.9
Absolute Monos (auto) 0.6
Absolute Eos (auto) 0.4
Absolute Basos (auto) 0.1
Immature Gran % 0.3
Neutrophils % 69.8
Lymphocytes % 19.3 L
Monocytes % 6.2
Eosinophils % 3.6
Basophils % 0.8
Nucleated RBC % 0
ESR 20
PT 14.0
INR 1.03
APTT 31.6
Plt Function - Aspirin 450
Sodium 140
Potassium
Chloride 110 H
Carbon Dioxide 22
BUN 20 H
Creatinine 0.7
Estimated Creat Clear 64
eGFR > 60.00
Glucose 117 H
Hemoglobin A1c
Calcium 9.4
Ferritin 102.0
Total Bilirubin Cancelled
AST Cancelled
ALT Cancelled
Alkaline Phosphatase Cancelled
Total Protein Cancelled
Albumin Cancelled
Triglycerides 125
Total Cholesterol 115
LDL Cholesterol, Calc 49
VLDL Cholesterol, Calc 25
HDL Cholesterol 41
Vitamin B12 471
Folate > 20.0 H
TSH (Reflex) 1.26
POC Glucose 192 H
11/21/24 11/21/24 11/22/24
17:39 21:49 06:08
WBC 10.0
RBC 5.13
Hgb 13.8
Hct 43.3
MCV 84.4
MCH 26.9 L
MCHC 31.9 L
RDW 13.3
Plt Count 218
MPV 10.8 H
Abs Immat Gran (auto)
Absolute Neuts (auto)
Absolute Lymphs (auto)
Absolute Monos (auto)
Absolute Eos (auto)
Absolute Basos (auto)
Immature Gran %
Neutrophils %
Lymphocytes %
Monocytes %
Eosinophils %
Basophils %
Nucleated RBC %
ESR
PT
INR
APTT
Plt Function - Aspirin
Sodium 141
Potassium 4.1
Chloride 112 H
Carbon Dioxide 21 L
BUN 17
Creatinine 0.6
Estimated Creat Clear 71
eGFR > 60.00
Glucose 149 H
Hemoglobin A1c 6.5 H
Calcium 10.0
Ferritin
Total Bilirubin
AST
ALT
Alkaline Phosphatase
Total Protein
Albumin
Triglycerides
Total Cholesterol
LDL Cholesterol, Calc
VLDL Cholesterol, Calc
HDL Cholesterol
Vitamin B12
Folate
TSH (Reflex)
POC Glucose 128 H 141 H
11/22/24
07:36
WBC
RBC
Hgb
Hct
MCV
MCH
MCHC
RDW
Plt Count
MPV
Abs Immat Gran (auto)
Absolute Neuts (auto)
Absolute Lymphs (auto)
Absolute Monos (auto)
Absolute Eos (auto)
Absolute Basos (auto)
Immature Gran %
Neutrophils %
Lymphocytes %
Monocytes %
Eosinophils %
Basophils %
Nucleated RBC %
ESR
PT
INR
APTT
Plt Function - Aspirin
Sodium
Potassium
Chloride
Carbon Dioxide
BUN
Creatinine
Estimated Creat Clear
eGFR
Glucose
Hemoglobin A1c
Calcium
Ferritin
Total Bilirubin
AST
ALT
Alkaline Phosphatase
Total Protein
Albumin
Triglycerides
Total Cholesterol
LDL Cholesterol, Calc
VLDL Cholesterol, Calc
HDL Cholesterol
Vitamin B12
Folate
TSH (Reflex)
POC Glucose 129 H
MRI brain: No acute infarct. Stable mild to moderate chronic microvascular white matter ischemic change, and mild to moderate age-appropriate atrophy. As before, on sagittal T1, there is cervical central canal narrowing from C2-C3 through C6-7,
which may be congenital. As stated previously, further imaging evaluation may be considered with dedicated nonemergent MRI examination of the cervical spine.
Carotid U/S: Calcified plaque bilateral proximal internal carotid arteries. Based on velocity measurements, any internal carotid artery stenosis is less than 50% bilaterally. Antegrade flow bilateral vertebral arteries.
Focal left then right upper extremity weakness:
-pertinent h/o CVA s/p TNK 08/26
-MRI brain without acute CVA
-case discussed with neuro (who saw the pt in consultation) and symptoms likely due to complex migraine
-cont ASA/Plavix as per neuro
-outpt neuro follow up
-Tele reviewed, no afib/flutter
Other problems:
HLD: on Repatha outpt
CAD s/p PCI 05/26: cont ASA/Plavix
DM2: a1c 6.5%, cont Lantus/SSI/Nateglinide
Hypothyroidism: cont Synthroid
DNR/SCDs
Total time spent on d/c = 33 min. This included today's physical exam, progress note, review of laboratory and diagnostic data, preparation of discharge documents and prescriptions, and discussions about the pt's hospital course and discharge plan
with the patient and other medical educator involved in the patient's care.
--- NOTE | 2024-11-22 09:51 | CM ---
CM reviewed chart, patient seen bedside, initial assessment completed. Patient resides independently in a two story home, bedroom is down a flight of steps, no steps to enter. Patient denies use of DME, denies VN/SNF, has hx outpatient therapy after
total knee replacement. Patient confirms PCP Lvaerne Garcia, pharmacy [facility], confirms prescription coverage. Patient denies insecurities at home. Per therapy evals, no skilled need. Patient denies needs from CM upon d/c, confirms she has
transportation home. CM will continue to follow for all discharge planning needs.
Plan; home no needs anticipated
[2024-11-22 09:52] VITALS: BP 150/76; PULSE 83; O2SAT 96
--- NOTE | 2024-11-22 10:00 | PTOTSP ---
pt currently requires no assistance to complete simple ADLs, functional transfers, ambulation. pt demonstrates good ROM, strength B hands, UEs. no overt deficits noted regarding hand coordination, cognition. will sign off.
[2024-11-22 11:14] VITALS: BP 109/79
[2024-11-22 11:38] LABS: Glucose - Point of Care 141 mg/dl (70-99)
--- NOTE | 2024-11-22 12:04 | W.DCSUMMARY ---
Discharge Summary
Discharge Data
Date of Admission: 11/21/24
Date of Discharge: 11/22/24
-
Pending Results: No
Hospital Course
Discharging Physician : Dr. Lucho Jackson and Dr. Morales Jones
Disposition : Home
Primary care physician : Dr. Laverne Garcia
Principal Discharge diagnosis : Transient bilateral upper extremity weakness, likely due to complex migraine
Chronic Discharge diagnosis :
Hypertension
Coronary artery disease s/p PCI in 2021
Type 2 diabetes mellitus
Hyperlipidemia
Bilateral hearing loss
GERD
Hospital Course :
This is a 79-year-old female with a past medical history of essential hypertension, type 2 diabetes mellitus, GERD, hyperlipidemia and bilateral hearing loss who presented to the ED with bilateral upper extremity weakness and concern for stroke-like
symptoms. On 11/20/2024, patient dropped a plate from her left hand due to sudden onset weakness. She states it resolved after a few minutes, but experienced another episode 11/21/2024 morning where she dropped her phone. This episode also resolved
within a few minutes. At presentation, there were no acute symptoms, but she did endorse a headache that she attributed to recent Repatha use 3 days ago. She denied dizziness, loss of consciousness, chest pain, shortness of breath, palpitations or
lower extremity weakness. Patient was admitted in August 2024 for concerns of CVA, at which time she got TNK. Patient was started on aspirin alone and continued on aspirin 81 Mg on discharge. Patient has been compliant to the medication. She had a
dental procedure 1 week ago, and was started on amoxicillin 11/16/2024 postprocedure to complete for 7 days.
Upon imaging, there was no evidence of acute intracranial abnormality or any acute infarct. There were mild to moderate chronic microvascular white matter ischemic changes and age-appropriate atrophy. Neurology was consulted. Patient symptoms
were likely due to migraine. Neurology recommended outpatient neurology follow-up as well as an outpatient sleep study. Patient has been informed of this and is agreeable to this plan. Patient to be discharged on Plavix 75 Mg daily for 21 days.
Recommend to follow-up with PCP in 1 week.
Important imaging findings :
CT head 11/21/2024: No evidence of acute intracranial abnormality
Carotid ultrasound 11/21/2024: Calcified plaque bilateral proximal internal carotid arteries. Patient velocity measures, any internal carotid artery stenosis is less than 50% bilaterally. Anterograde flow bilateral vertebral arteries.
MRI brain 11/21/2024: No acute infarct. Stable mild to moderate chronic microvascular white matter ischemic change, and mild to moderate age-appropriate atrophy. As before, on sagittal T1 there is a cervical central canal narrowing from C2-C3
through C6-7. Further imaging evaluation may be considered with dedicated nonemergent MRI examination of the cervical spine.
Discharge Plan
-
Patient Disposition: Home (Routine Discharge)
Discharge Diagnosis/Procedures: Transient bilateral upper extremity weakness, likely due to complex migraine
Condition: Good
Diet: Low Sodium and Diabetic, Carb Controlled
Activity: No restrictions
Driving Restrictions: As prior to admission
Bathing Restrictions: None
Blood Work: CBC CMP in 1 week�obtain prescription from PCP
Others Tests: Outpatient sleep study
Referrals:
Laverne Garcia PA [Family Provider, Family Practice] - in less than 1 week
Referral Note: Neurology recommended outpatient sleep study
Kelvin Mustafa MD [Active, Neurology] - in one to two weeks
Additional Discharge Medication Instructions: Take clopidogrel (Plavix) for 21 days. First dose: 11/22/24. Last dose: 12/12/24
Prescriptions:
New
clopidogrel 75 mg Tablet
75 mg PO DAILY Qty: 20 0RF
Continued
amlodipine 10 MG tablet
10 mg PO DAILY
levothyroxine 125 MCG tablet
125 mcg PO DAILY
furosemide 20 MG tablet
20 mg PO DAILY
omega 0-anw-srz-fish oil 1 EACH capsule
1 cap PO DAILY
nateglinide 60 mg tablet
60 mg PO AC
docusate sodium 100 mg Capsule
100 mg PO HS
dorzolamide-timolol 22.3-6.8 mg/mL drops
1 drp BOTH EYES BID
ezetimibe 10 mg tablet
10 mg PO DAILY
Lumigan 0.01 % drops
1 drp BOTH EYES QPM
aspirin 81 mg Tablet,Delayed Release (Dr/Ec)
81 mg PO DAILY 30 Days Qty: 30 1RF
amoxicillin 500 mg Capsule
500 mg PO TID
Rx Instructions:
for 7 days starting 11/15/24
therapeutic multivitamin Tablet
1 tab PO DAILY
insulin glargine [Lantus Solostar U-100 Insulin] 100 unit/mL (3 mL) Insulin Pen
22 unit SC DAILY
Repatha SureClick 140 mg/mL Pen Injector
140 mg SC Q2W
Discharge Orders:
Discharge Patient (As Directed); Ordered 11/22/24
Ordered By: Lucho Jackson
Discharge Date and Time
Print Language: SLOVENIAN
== END 2024-11-22 12:59 | disposition home or self-care (01) ==
LOC: 4 WEST ACU 13:52
PROVIDERS: Registered Nurse Critical Care Medicine; Student in an Organized Health Care Education/Training Program; ADMITTING PHYSICIAN Student in an Organized Health Care Education/Training Program; ATTENDING PHYSICIAN Internal Medicine; CONSULT PHYSICIAN Psychiatry & Neurology Neurology; EMERGENCY PHYSICIAN Student in an Organized Health Care Education/Training Program; FAMILY PHYSICIAN Physician Assistant Medical
DX: R53.1 Weakness (principal); R51.9 Headache, unspecified; E78.00 Pure hypercholesterolemia, unspecified; I10 Essential (primary) hypertension; I25.10 Atherosclerotic heart disease of native coronary artery without angina pectoris; H91.93 Unspecified hearing loss, bilateral; K21.9 Gastro-esophageal reflux disease without esophagitis; E66.9 Obesity, unspecified; I67.82 Cerebral ischemia; I65.23 Occlusion and stenosis of bilateral carotid arteries; J34.1 Cyst and mucocele of nose and nasal sinus; G89.29 Other chronic pain; E03.9 Hypothyroidism, unspecified; E11.9 Type 2 diabetes mellitus without complications; Z95.5 Presence of coronary angioplasty implant and graft; Z66 Do not resuscitate; Z79.82 Long term (current) use of aspirin; Z87.891 Personal history of nicotine dependence; Z90.710 Acquired absence of both cervix and uterus; Z90.49 Acquired absence of other specified parts of digestive tract; Z96.651 Presence of right artificial knee joint; Z86.73 Personal history of transient ischemic attack (TIA), and cerebral infarction without residual deficits; Z88.5 Allergy status to narcotic agent; Z88.8 Allergy status to other drugs, medicaments and biological substances; Z91.048 Other nonmedicinal substance allergy status; Z79.4 Long term (current) use of insulin; Z79.890 Hormone replacement therapy; Z79.02 Long term (current) use of antithrombotics/antiplatelets; Z60.2 Problems related to living alone
CPT/HCPCS: 70450; 70551; 80048; 80061; 82607; 82728; 82746; 82962; 83036; 84443; 85025; 85027; 85576; 85610; 85652; 85730; 93005; 93880; 97161; 97167; 99285; G0378

== ENCOUNTER → 2025-02-07 14:12 | Outpatient (REF) | payer OTHER, SELFPAY | LOC: PAVMRI 14:12 | PROVIDERS: ATTENDING PHYSICIAN Physician Assistant Medical | DX: M54.2 Cervicalgia (principal); M48.02 Spinal stenosis, cervical region | CPT/HCPCS: 72141 ==

== ENCOUNTER → 2025-03-06 22:00 | Outpatient (REF) | payer OTHER, SELFPAY | LOC: DHSLP 22:00 | PROVIDERS: ATTENDING PHYSICIAN Internal Medicine Critical Care Medicine; FAMILY PHYSICIAN Physician Assistant Medical | DX: G47.33 Obstructive sleep apnea (adult) (pediatric) (principal) | CPT/HCPCS: 95806 ==